=== PATIENT | female | born 1945 | race Caucasian/White ===

== ENCOUNTER → 2016-12-21 | Outpatient (CLI) | payer MEDICARE, BC ==
[~2016-12-21] MED LIST: ACET500T37 PO; AMLO10TA2 PO; ATEN50TA2 PO; ATOR1TAB21 PO; CALC1CAP31 PO; CITA20TA4 PO; CLONI1TA PO; DOXA1TAB42 PO; FURO40TA2 PO; ISOS30TA4 PO; LOSA50TA20 PO; METO5TA PO; RENV2TAB PO; SPIR25TA2 PO
--- NOTE | 2016-12-21 11:06 | REP ---
Chest two views HISTORY: COPD Comparison: 12/20/2014 A minimal increase in interstitial markings is present in the lungs. The heart is normal in size. The pulmonary vasculature is normal in appearance. The bony structure is intact. A catheter is present in the superior vena cava. IMPRESSION: COPD Signed by Lg Shay MD 12/21/2016 10:58 A
== END ==
LOC: M SMT 09:49
PROVIDERS: ATTEND Internal Medicine Pulmonary Disease
DX: J44.9 Chronic obstructive pulmonary disease, unspecified (principal)

== ENCOUNTER 2017-01-31 10:52 | Inpatient (IN) | payer MEDICARE, BC ==
[~2017-01-31] VITALS: Ht 157.5 cm; Wt 97.5 kg
[~2017-01-31 10:52] MED LIST changes: +ACET-683 PO; -ACET500T37 PO
[2017-01-31] MEDS ORDERED: ANOR1AER INH (11:25)
[2017-01-31] MEDS ORDERED: VITA-122 PO (11:25)
[2017-01-31] MEDS ORDERED: MORPHINE 2 MG/ML 1ML SYRINGE IV ONE (13:45)
[2017-01-31] MEDS ORDERED: ACETAMINOPHEN TAB 650MG DOSE (2X325MG) PO ONE (13:45)
[2017-01-31 14:40] LABS: BASO # 0.1 K/mm3 (0.0-0.2); BASO % 0.6 % (0.0-1.0); EOS # 0.3 K/mm3 (0.0-0.50); EOS % 2.5 % (0.0-3.0); LARGE UNSTAINED CELL # 0.2 K/mm3 (0.0-0.4); LARGE UNSTAINED CELL % 1.7 % (0.0-4.0); LYMPH # 1.6 K/mm3 (1.5-4.5); LYMPH % 13.2 % (24.0-44.0); MEAN CORPUSCULAR HEMOGLOBIN 34.9 pg (27.0-33.0); MEAN CORPUSCULAR HGB CONC 32.8 g/dl (32.0-36.5); MEAN CORPUSCULAR VOLUME 106.2 fl (80.0-96.0); MONO # 0.6 K/mm3 (0.0-0.8); MONO % 5.3 % (0.0-5.0); NEUTROPHILS # 8.1 K/mm3 (1.8-7.7); NEUTROPHILS % 76.6 % (36.0-66.0); PLATELET COUNT, AUTOMATED 174 k/mm3 (150-450); RED CELL DISTRIBUTION WIDTH 14.5 % (11.5-14.5); WHITE BLOOD COUNT 10.6 K/mm3 (4.0-10.0)
[2017-01-31 14:53] LABS: CALCIUM LEVEL 8.7 MG/DL (8.8-10.2); CREATININE FOR GFR 6.31 MG/DL (0.55-1.02); GLOMERULAR FILTRATION RATE 6.9 (>39)
[2017-01-31 14:57] LABS: POTASSIUM SERUM 5.5 MEQ/L (3.5-5.1)
[2017-01-31] MEDS ORDERED: ISOVUE-370 76% 100ML VIAL (Q9967) As Ordered ONE (15:02)
--- NOTE | 2017-01-31 15:58 | REP ---
CT CHEST WITH IV CONTRAST: TECHNIQUE: Axial contrast enhanced images from the thoracic inlet to the upper abdomen using 100 mL Isovue 370 intravenous contrast material with multiplanar reformations. In the left upper lobe there is a nodule measuring 7 mm in diameter. Another nodule is seen in the left lower lobe 6 mm in diameter. There is fibrocalcific scarring in the right upper lobe. There are calcified lymph nodes in the right hilum. No suspicious adenopathy is seen. There is no pleural or pericardial effusion. Heart is normal in size. There are mild scattered atherosclerotic calcifications of the thoracic aorta without aneurysm or dissection. There are degenerative changes of the spine. Patient has had a prior cholecystectomy. Left adrenal gland demonstrate diffuse thickening with relatively low density probably representing diffuse adenomatous change. No other significant abnormalities are seen. IMPRESSION: Two left lung nodules noted 6 and 7 mm in diameter. Fibrocalcific scarring right upper lobe with small calcified lymph nodes in the right hilum. No suspicious adenopathy or fluid collection. Diffuse low density thickening of the left adrenal gland probably represents diffuse adenomatous change. Signed by Alex Tay MD 01/31/2017 05:14 P
--- NOTE | 2017-01-31 16:11 | REP ---
CT NECK WITH CONTRAST: HISTORY: Right neck pain. CONTRAST: Isovue-370 100 mL. An ill-defined soft-tissue mass is present in the right supraclavicular area. The mass measures approximately 3.4 cm in transverse x 3.0 cm in AP x 5.3 cm in cephalocaudal dimensions. A catheter is present in the superior vena cava. The catheter enters the superior vena cava at the level of the inferior the left internal jugular vein. The soft tissue mass partially encases the catheter in the anterior subcutaneous soft-tissue. There is encasement of the distal left internal jugular vein. There is inferior extension of the mass to the superior margin of the right clavicle. There is superior extension of the mass posterolateral to the right sternocleidomastoid muscle and lateral the right common carotid and internal carotid arteries and right internal jugular vein. Stranding is present in the overlying subcutaneous tissue and right supraclavicular area and right posterior triangle. Edema and a small amount of fluid are present in the right carotid space and retropharyngeal space. There is very minimal mass effect on the hypopharynx. The naso- and oropharynx, larynx, and subglottic trachea are normal in appearance. The salivary and thyroid glands are normal in appearance. Small lymph nodes less than 1 cm in size are present in the internal jugular chains, posterior triangles and submandibular areas. Degenerative changes is present in the cervical spine. Minimal mucosal thickening is present in the left maxillary sinus. IMPRESSION: There is an ill-defined mass in the right supraclavicular area as described above, most consistent with a phlegmon. The phlegmon encases the right superior vena cava catheter in the right anterior subcutaneous tissues superior to the right clavicle. There is minimal mass effect on the hypopharynx. Signed by Lg Shay MD 01/31/2017 04:30 P
[2017-01-31] MEDS ORDERED: PIPERACILLIN/TAZOBACTAM SOD 3.375 GM in D5W MINI-BAG PLUS 50 ML IV ONE (16:45)
[2017-01-31] MEDS ORDERED: VANCOMYCIN HCL 1,000 MG, VIAL MATE ADAPTER 1 EACH in D5W 250 ML IV ONE (16:45)
[2017-01-31] MEDS ORDERED: MORPHINE 2 MG/ML 1ML SYRINGE IV PRN (18:15)
[2017-01-31] MEDS ORDERED: ONDANSETRON 4MG/2ML VIAL (J2405) IV PRN (18:15)
[2017-01-31] MEDS ORDERED: VANCOMYCIN HCL 1,000 MG, VIAL MATE ADAPTER 1 EACH in D5W 250 ML IV SCH (18:15)
[2017-01-31] MEDS ORDERED: BISACODYL 5 MG TAB PO PRN (18:15)
[2017-01-31] MEDS ORDERED: ACETAMINOPHEN TAB 650MG DOSE (2X325MG) PO PRN (18:15)
[2017-01-31] MEDS ORDERED: GLUCAGON FOR INJ 1 MG VIAL (J1610) SC PRN (18:45)
[2017-01-31] MEDS ORDERED: GLUCOSE 4 GM CHEW TABLET PO PRN (18:45)
[2017-01-31] MEDS ORDERED: IPRATROPIUM 0.5MG/ALBUTEROL 2.5MG INH SOL UD 3ML (DUONEB)(J7620) NEB PRN (18:45)
[2017-01-31] MEDS ORDERED: DEXTROSE 50% 50 ML SYRINGE IV PRN (18:45)
[2017-01-31] MEDS: SOD POLYSTYRENE SULFONATE SUSP 15 GM/60 ML UD PO ONE (19:00)
[2017-01-31] MEDS ORDERED: LOSA100T36 PO (19:04)
[2017-01-31] MEDS ORDERED: RENV2TAB PO (19:09)
[2017-01-31] MEDS ORDERED: CITA20TA4 PO (19:09)
[2017-01-31] MEDS ORDERED: CLON-412 PO (19:09)
[2017-01-31] MEDS: PERCOCET 5MG/325MG TAB PO PRN ×4 (19:31→23:19)
[2017-01-31] MEDS: IPRATROPIUM 0.5MG/ALBUTEROL 2.5MG INH SOL UD 3ML (DUONEB)(J7620) NEB SCH (20:08)
[2017-01-31] MEDS: HumaLOG INSULIN (NovoLOG) PER UNIT SC SCH (21:00)
[2017-01-31] MEDS ORDERED: VANCOMYCIN INTERMITTENT/PULSE DOSING BY CLINICAL PHARMACIST PER DOSING PROTOCOL XX SCH (22:00)
--- NOTE | 2017-01-31 23:46 | HPE ---
DATE OF ADMISSION: 01/31/2017 PRIMARY CARE PROVIDER: Patient does not remember the name of the primary care provider. ADULT PROBATION OFFICER: Patient does not remember the name of the casualty underwriter. CHIEF COMPLAINT: Right-sided neck pain close to the Shiley catheter. HISTORY OF PRESENT ILLNESS: Ms. El is a 71-year-old female with multiple past medical history who presented to the emergency room (ER) due to experiencing right-sided neck pain as well as pain and tenderness around the Shiley catheter which had started since last night. Patient expressed that around 11 p.m. patient started noticing severe pain in the right side of the neck and around the Shiley catheter. Patient expressed that she tried to sleep, however she could not due to the pain. Pain was increased with rotation of the neck, as well as palpating the area. Patient expressed the pain was a sharp, achy pain, with no radiation. Patient was accompanied by her daughter who expressed that patient has some swelling in the side of the Shiley catheter. Patient cannot remember if she had any fever, however patient expressed that she had some chills and night sweats. Patient's daughter also noticed some erythema around the site of the Shiley catheter. Patient denies problem with chewing food or pain with movement of the right upper extremity. Patient denies headache, lightheadedness, or dizziness. Patient was brought to emergency room (ER) by her daughter and her daughter's boyfriend. Patient also receives dialysis. Patient receives dialysis on Tuesdays, , and Saturdays, her last dialysis was on Tuesday. ALLERGIES: No known allergies. HOME MEDICATIONS: - acetaminophen extra strength 500 mg by mouth every 6 hours as needed for pain - amlodipine besylate 10 mg by mouth daily - Anoro Ellipta one puff inhaled daily - atenolol 50 mg by mouth daily - atorvastatin 20 mg by mouth daily - calcitriol 0.25 mg by mouth daily - vitamin D3 1000 units by mouth daily - citalopram 20 mg by mouth daily - clonidine 0.1 mg by mouth twice a day - isosorbide mononitrate 30 mg by mouth twice a day - losartan potassium 100 mg by mouth daily - Renvela 800 mg by mouth Mondays and Wednesdays FAMILY HISTORY: Patient has five children, three daughters and two sons, who are healthy. Patient has one brother who is still alive, however patient has three sisters who due to cancer. Patient's mother in her 40s when she was having open heart surgery. Patient's father due to lung cancer. SOCIAL HISTORY: Patient denies using alcohol. Patient smoked about a pack a day since age 12. Patient denies illicit drug use. Patient has a dog. Patient lives with her boyfriend and her daughter and her daughter's . Patient has not traveled outside of the [place]. REVIEW OF SYSTEMS: GENERAL: Patient denies fever, chills, night sweats, weight loss or weight gain. HEENT: Patient denies acute vision or hearing changes. Patient denies problem with chewing food or sinusitis. NECK: Patient expressed that she has been experiencing, on the right side, 10/10, sharp, severe pain. Patient also has a Shiley catheter on the right side of her sternum. Patient expressed that the pain is increased by palpation. However, the patient denies lumps or bumps. Patient also expressed that her neck range of motion has decreased to the right compared to the left side. LUNGS: Patient denies shortness of breath or coughing. HEART: Patient denies palpitations, racing or skipping heart beat, or chest pain. ABDOMEN: Patient denies abdominal pain, nausea, vomiting, diarrhea, constipation, melena, hematochezia, or hemoptysis. NEUROLOGIC: Patient denies history of transient ischemic attack (TIA), seizure, or seizure-type activities. PHYSICAL EXAMINATION: VITAL SIGNS: Temperature of 100.2, pulse 55, respiratory rate 18, blood pressure 138/66, pulse oximetry 98% on room air. GENERAL APPEARANCE: Patient was lying in bed, in no acute distress. Patient was awake, alert, and oriented to time, place, and person. HEENT: Normocephalic, atraumatic. Pupils are equal and reactive to light. Oral mucosa was moist. NECK: Soft, supple. Patient had tenderness to palpation on the right side of the neck, especially around the area of the Shiley catheter. Patient also has some pus from the site of the Shiley catheter insertion, however no erythema or swelling was noticed in that area. LUNGS: Patient has scattered rhonchi at the base of the lung and good air movement. HEART: Patient has regular rate and rhythm, normal S1, S2. ABDOMEN: Soft, nontender. Positive bowel sounds in all quadrants. EXTREMITIES: No lower extremity edema, +2 pulses in both lower extremities. NEUROLOGIC: Cranial nerves II-XII were intact, no focal deficiencies. LABORATORY DATA: White blood cells 10.6, red blood cells 3.07, hemoglobin 10.7, hematocrit 32.7, MCV 106.2, MCH 34.9, MCHC 32.8, RDW 14.5, platelet count 174, neutrophil percentage 76.6, lymphocyte percentage 13.2, monocyte percentage 5.3, eosinophil percentage 2.5, basophil percentage 0.6, leukocyte percentage 1.7. Sodium 135, potassium 5.5, chloride 103, carbon dioxide 19, anion gap 13, BUN 42, creatinine 6.31, glomerular filtration rate 6.9, fasting glucose 88, calcium 8.7. Blood culture is pending. IMAGING: Chest CT which shows two left lung nodules noted 6 and 7 mm in diameter. Fibrocalcific scarring right upper lobe with small calcified lymph nodes in the right hilum. No suspicious adenopathy or fluid collection. Diffuse low density thickening of the left adrenal gland probably represents diffuse adenomatous changes. CT of the neck with contrast which shows ill-defined mass in the right supraclavicular area most consistent with a phlegmon. The phlegmon encases the right superior vena cava catheter in the right anterior subcutaneous tissues superior to the right clavicle. There is minimal mass effect on the hypopharynx. ASSESSMENT AND PLAN: 1. Neck pain. This is possibly secondary to infected Shiley catheter. Blood culture is pending. At this time we have started patient on vancomycin and Zosyn. Also patient may require vascular surgeon consult for tomorrow for removal of catheter. Also we have made the patient nothing by mouth and started patient on gentle IV fluid due to possibility of the procedure for tomorrow. 2. Acute on chronic renal failure. Patient receives dialysis and tomorrow is her dialysis day. I have spoken with Dr. Sommer regarding patient's dialysis. 3. Accelerated hypertension. At this point, we will continue patient on Norvasc, atenolol, Cozaar, as well as Imdur. At this point, patient is stable. 4. Hyperkalemia. This is secondary to chronic kidney disease. EKG has been ordered. Also I have ordered one dose of Kayexalate. We will continue monitoring patient's potassium level. 5. History of hypertension. We will continue patient on the current medications. At this time patient's blood pressure is stable. 6. Diabetes. We will continue patient on sliding scale. At this time, patient is stable. However, at this time patient is nothing by mouth. We will continue patient on every 6 hours fingersticks. 7. Chronic obstructive pulmonary disease (COPD). At home, patient was on Anoro , however we have started patient on DuoNeb and patient is stable. Also patient is on oxygen with a goal of 88-92%. 8. Hyperlipidemia. We will continue patient on statin. 9. Congestive heart failure. Patient is following with casualty underwriter, however we do not have the new echo. Will continue patient on furosemide, atenolol, and spironolactone. 10. Deep venous thrombosis ( DVT) prophylaxis. Due to the possibility of a procedure, we will continue patient on thromboembolism deterrents (TEDs) and sequentials. 11. Lung nodules. Based on the new CT of the chest which was done today, it indicted patient has two left lung nodules noted, 6 and 7 mm in diameter, which require followup. My preceptor for this patient encounter was Dr. Lela Simon. The preceptor was physically present in the building during the encounter and was fully available. As needed, all aspects of the patient interview, examination, medical decision making process, and medical care plan development were reviewed and approved by the preceptor. The preceptor is aware and concurs with the plan as stated in the body of this note and will attest to such by her cosignature. I have seen and examined the above patient and agree with the plan as documented above. SUSAN
[2017-02-01] VITALS: BP 151/80
[2017-02-01] MEDS: cloNIDine 0.1 MG TAB PO SCH ×3 (00:21→22:09)
[2017-02-01] MEDS: ISOSORBIDE MON. (IMDUR) 30 MG XR TAB PO SCH ×3 (00:21→22:10)
[2017-02-01] MEDS: NS 1,000 ML IV SCH ×2 (00:21→14:45)
[2017-02-01] MEDS: IPRATROPIUM 0.5MG/ALBUTEROL 2.5MG INH SOL UD 3ML (DUONEB)(J7620) NEB SCH ×4 (02:00→20:19)
[2017-02-01] MEDS: PIPERACILLIN/TAZOBACTAM SOD 3.375 GM in D5W MINI-BAG PLUS 50 ML IV SCH ×3 (04:40→22:11)
[2017-02-01 06:00] VITALS: BP 174/80
[2017-02-01] MEDS: (RENVELA) SEVELAMER **CARBONate** 800 MG TAB PO SCH ×4 (06:44→18:22)
[2017-02-01 06:48] LABS: BASO % 0.5 % (0.0-1.0); EOS # 0.1 K/mm3 (0.0-0.50); EOS % 1.3 % (0.0-3.0); LARGE UNSTAINED CELL # 0.2 K/mm3 (0.0-0.4); LARGE UNSTAINED CELL % 1.7 % (0.0-4.0); LYMPH # 1.4 K/mm3 (1.5-4.5); LYMPH % 11.5 % (24.0-44.0); MEAN CORPUSCULAR HEMOGLOBIN 35.5 pg (27.0-33.0); MEAN CORPUSCULAR HGB CONC 33.9 g/dl (32.0-36.5); MEAN CORPUSCULAR VOLUME 104.8 fl (80.0-96.0); MONO # 0.7 K/mm3 (0.0-0.8); MONO % 6.9 % (0.0-5.0); NEUTROPHILS % 78.2 % (36.0-66.0); PLATELET COUNT, AUTOMATED 195 k/mm3 (150-450); RED CELL DISTRIBUTION WIDTH 14.6 % (11.5-14.5); WHITE BLOOD COUNT 10.2 K/mm3 (4.0-10.0)
[2017-02-01 07:18] LABS: ALBUMIN 2.9 GM/DL (3.2-5.2); BILIRUBIN,TOTAL 0.5 MG/DL (0.2-1.0); CALCIUM LEVEL 8.5 MG/DL (8.8-10.2); CREATININE FOR GFR 7.24 MG/DL (0.55-1.02); GLOMERULAR FILTRATION RATE 5.9 (>39); TOTAL PROTEIN 5.8 GM/DL (6.4-8.2); VANCOMYCIN RANDOM 8.5 UG/ML
[2017-02-01] MEDS: HumaLOG INSULIN (NovoLOG) PER UNIT SC SCH ×4 (07:30→21:00)
[2017-02-01 07:45] LABS: POTASSIUM SERUM 5.8 MEQ/L (3.5-5.1)
[2017-02-01] MEDS: CALCITRIOL 0.25 MCG CAP (S0169) PO SCH (08:24)
[2017-02-01] MEDS: ATENOLOL 50 MG TAB PO SCH (08:25)
[2017-02-01] MEDS: CitaloPRAM (CeleXA) 20 MG TAB PO SCH (08:26)
[2017-02-01] MEDS: LOSARTAN 50 MG TAB PO SCH (08:26)
[2017-02-01] MEDS: amLODIPine 10 MG TAB PO SCH (08:26)
[2017-02-01] MEDS: VITAMIN D 1,000 INTERNATIONAL UNITS TABLET PO SCH (08:26)
[2017-02-01] MEDS: ATORVASTATIN 20 MG TAB PO SCH (08:26)
--- NOTE | 2017-02-01 09:10 | ED PDOC ---
Post-Departure Follow-Up radiology report faxed to Yue Schilling MD Feb 01, 2017 09:09
[2017-02-01] MEDS ORDERED: HEPARIN 1,000 UNITS/ML 10ML VIAL (FOR RADIOLOGY& DIALYSIS ONLY) IV ONE (11:30)
[2017-02-01] MEDS ORDERED: HEPARIN 1,000 UNITS/ML 10ML VIAL (FOR RADIOLOGY& DIALYSIS ONLY) XX ONE (11:30)
--- NOTE | 2017-02-01 12:19 | PHACANCOPD ---
PHARMACY VANCOMYCIN DOSING Pt Demographics Demographics Patient Age:71 , Weight:96.700 , Gender: female Adjusted Body Weight Date: 02/01/17, Adjusted Body Weight: Kg Events Past 24 Hours Events Past 24 Hours: YES: Dialysis, Elevation in WBC, NO: Diuretic Therapy, Change in CrCl, Fever, Pending Diagnostics, Pending Procedures, Other Vancomycin Vancomycin Target Ranges: 15-20 mcg/ml Vancomycin Load Y/N: No Load Dose Date Time Vancomycin Load Dose: Date: Time: Vancomycin Dose Date: 02/01/17. Current Vancomycin Dose: [1G HD] Intermittent Dosing?: No Labs Labs Item Value Date Time White Blood Count 10.6 K/mm3 H 01/31/17 1423 White Blood Count 10.2 K/mm3 H 02/01/17 0620 Creatinine 6.31 MG/DL H 01/31/17 1423 Creatinine 7.24 MG/DL H 02/01/17 0620 Random Vancomycin Level 8.5 UG/ML 02/01/17 0620 Micro Microbiology 01/31/17 Blood Culture, Received Pending 01/31/17 Blood Culture, Received Pending Creatinine Clearance Date:02/01/17. Creatinine Clearance: [7.24]. Assessment and Plan Maintaining Current Dose?: Yes Reason for dose change: Other (pt is HD. changed to dose after HD) Pharmacist Note Pharmacist Note Date: 02/01/17. Pharmacist note: Pt. is a 71 year old female who presented to the ER on 01/31 with right-sided neck pain and tenderness around her shiley catheter. Pt is currently received HD on , , and Tue. She received Vanco IV 1G in ED at 5pm. on 01/31. On 02/01 pt received dialysis. Will start dosing with 1500mg LD after dialysis today, then continue Vanco 1G HD. We will continue to monitor and make dose adjustments as needed. MALI[facility] Feb 01, 2017 12:19
--- NOTE | 2017-02-01 12:59 | CR ---
DATE OF CONSULTATION: 02/01/2017 REQUESTING PHYSICIAN: Dr. Norma Yates CONSULTING PHYSICIAN: Ronn Sommer MD REASON FOR CONSULTATION: Management of end-stage renal disease, hemodialysis, and hyperkalemia. CHIEF COMPLAINT: The patient presented to the emergency room yesterday because of severe right-sided neck pain close to the catheter site. HISTORY OF PRESENT ILLNESS: Rachael El is a 71-year-old female with past medical history of end-stage renal disease, on hemodialysis every Tuesday, , Tuesday, well known to nephrology service from the outpatient dialysis center. The patient has a tunneled right internal jugular (vein) (IJ) hemodialysis catheter. The patient started having severe pain at the right side of the neck at the catheter site, along with swelling and inability to move the neck. The patient presented to the emergency room yesterday. She got a CAT scan of the neck done with contrast, which showed inflammation around the catheter site. The patient was started on intravenous (IV) antibiotics, and nephrology service was called for further help in the management of end-stage renal disease , on hemodialysis. Of note, the patient was also found to be hyperkalemic with a potassium level of 5.5 on admission, which is 5.8 today morning. The patient was seen and examined by me today morning during hemodialysis procedure, as well. PAST MEDICAL HISTORY: Past medical history of end-stage renal disease, on hemodialysis, hypertension, diabetes mellitus type 2, obesity, chronic obstructive pulmonary disease (COPD), hyperlipidemia, history of congestive heart failure, depression, obstructive sleep apnea, anemia in end-stage renal disease, and history of coronary artery disease. PAST SURGICAL HISTORY: Status post appendectomy, history of cholecystectomy in the past, history of coronary artery stenting in the past, and status post right IJ tunneled hemodialysis catheter. ALLERGIES: No known drug allergies. HOME MEDICATIONS: The patient's home medications include: - Tylenol as needed for fever - amlodipine 10 mg by mouth daily - Anoro Ellipta one puff daily - atenolol 50 mg daily - atorvastatin 20 mg daily - calcitriol 0.25 mcg by mouth daily - vitamin D3 1000 units by mouth daily - citalopram 20 mg by mouth daily - clonidine 0.1 mg by mouth twice a day - isosorbide 30 mg by mouth twice a day - losartan 100 mg by mouth daily - Renvela 800 mg by mouth three times a day with meals FAMILY HISTORY: No significant family history of end-stage renal disease requiring hemodialysis. There is a positive history of lung cancer in the father. SOCIAL HISTORY: The patient is an active smoker. She smokes about a pack a day. She denies any alcohol abuse. She denies any illicit drug use. REVIEW OF SYSTEMS: GENERAL: The patient denies any fevers, chills, rigors, or weakness. EYES: She denies any double vision or blurry vision. EARS, NOSE, AND THROAT (ENT): She denies any dysphagia, odynophagia, or ear discharge. NECK: The patient does report right-sided neck swelling, pain, and tenderness. CARDIOVASCULAR: She denies any palpitations or chest pain or lower extremity edema. RESPIRATORY: The patient denies any cough or shortness of breath. GASTROINTESTINAL (GI): She denies any pain abdomen, constipation, diarrhea, or nausea. GENITOURINARY: She denies any history of dysuria or hematuria. CENTRAL NERVOUS SYSTEM (ASSIGNMENT CLERK): She denies history of strokes, seizures, or any muscle weakness. HEMATOLOGICAL AND ONCOLOGICAL: History of anemia secondary to end-stage renal disease. SKIN: She denies any rashes or ulcers. PSYCHIATRIC: The patient reports history of depression. ENDOCRINE: The patient reports history of diabetes and secondary hyperparathyroidism. All other review of systems is negative. LABORATORY REVIEW: CBC showed a WBC 10.2, hemoglobin 10.1, platelets are 195. BMP showed sodium 135, potassium 5.8, chloride 102, bicarbonate 25, BUN 54, creatinine is 7.2, calcium is 8.5, albumin 2.9. MICROBIOLOGY: Blood cultures are pending. IMAGING: A CAT scan of the neck was done yesterday, which showed ill-defined mass in the right supraclavicular area consistent with a phlegmon at the right superior vena cava catheter site. CURRENT INPATIENT MEDICATIONS: The patient's current inpatient medications include: - NS @50 mL an hour - Zosyn 3.25 gram intravenous (IV) every 8 hours - vancomycin 1 gram IV - Tylenol as needed - DuoNeb as needed - amlodipine 10 mg daily - atenolol 50 mg daily - Lipitor 20 mg daily - calcitriol 0.25 mcg daily - Celexa 20 mg daily - clonidine 0.1 mg by mouth twice a day - heparin subcutaneous - insulin sliding scale - isosorbide 30 mg by mouth twice a day - losartan 100 mg by mouth daily - morphine 2 mg IV one dose - Zofran IV as needed - Percocet one tablet by mouth every 4 hours as needed moderate pain - Renvela 800 mg by mouth with meals - Kayexalate 15 gram by mouth times one dose was given yesterday - vitamin D 1000 units by mouth daily PHYSICAL EXAMINATION: GENERAL: The patient is awake, alert, oriented times three, laying in bed, getting hemodialysis done. No apparent distress. VITAL SIGNS: Temperature is 98.7 degrees Fahrenheit, blood pressure is 174/80, pulse is 63, respiratory rate of 18, saturating 90% on room air. HEAD AND NECK EXAMINATION: Extraocular muscles intact. Pupils equally round and reactive to light. Mucous membranes are moist. Neck is supple. There is no jugular venous distention (JVD). The patient has a right-sided tunneled hemodialysis catheter with a tenderness and swelling at the right-sided catheter site. CARDIOVASCULAR: S1, S2. Regular rate. No murmur, rub, and gallop. RESPIRATORY: Chest is clear to auscultation bilaterally. Bilateral equal air entry. No rales or rhonchi. ABDOMEN: Is soft. Positive bowel sounds. Nontender. No ascites. No organomegaly. EXTREMITIES: No clubbing or cyanosis. Pulses are 2+. SKIN: No rashes or ulcers. CENTRAL NERVOUS SYSTEM (ASSIGNMENT CLERK): No focal neurological deficits. Power is 5/5 in all extremities. PSYCHIATRIC: Normal mood and affect. ASSESSMENT: A 71-year-old female with a past medical history of end-stage renal disease, on hemodialysis, hypertension, chronic obstructive pulmonary disease (COPD), admitted this time because of pain and swelling at the right IJ tunneled hemodialysis catheter site, along with hyperkalemia. PLAN: 1. Pain and swelling at the right internal jugular tunneled hemodialysis catheter site. The patient is being dialyzed via the right IJ catheter right now. After we dialyze this patient, the patient will be taken by vascular surgery for removal of catheter, and another catheter would possibly be placed in 1-2 days. Continue the antibiotics and follow the cultures. 2. End-stage renal disease, on hemodialysis. The patient's regular dialysis days are Tuesday, , Saturday. She is being dialyzed at this time according to her regular schedule. 3. Hyperkalemia. Potassium is 5.8 today. The patient will be dialyzed against a 1K bath. Potassium is expected to improve after hemodialysis. 4. Hyponatremia. Sodium level is low because of hypervolemia and end-stage renal disease. Sodium is expected to improve with ultrafiltration. 5. Hypertension. Blood pressure is expected to improve with hemodialysis and ultrafiltration. Continue home dose of amlodipine 10 mg by mouth daily, atenolol 50 mg by mouth daily, clonidine 0.1 mg by mouth twice a day, isosorbide 30 mg by mouth twice a day, and Losartan 100 mg by mouth daily. 6. Secondary hyperparathyroidism of renal origin. Continue home dose of calcitriol 0.25 mcg by mouth daily. 7. Chronic obstructive pulmonary disease. Continue home dose of Anoro Ellipta and DuoNebs as needed. 8. Diabetes mellitus type 2. Insulin sliding scale as per primary team. Thank you for involving us in the care of this patient. We shall be happy to follow the patient along with you tomorrow morning. PAULINED
[2017-02-01 14:00] VITALS: BP 133/98
[2017-02-01] MEDS: CHECK TO SEE IF PATIENT IS RECEIVING DIALYSIS TODAY AND REFER TO THE VANCOMYCIN ORDER XX SCH (16:00)
--- NOTE | 2017-02-01 16:51 | IPN ---
DATE: 02/01/2017 Patient seen and examined at the dialysis center at bedside. She is sleeping. Patient complains of feeling cold last night. The maximum temperature (T max) was 100.2. Dialysis catheter will be removed today after dialysis by vascular surgeon, Dr. Mcintosh. No other issues per nursing aside from potassium of 5.8. Patient denies any headaches, changes in vision, chest pain, pressure, tightness, shortness of breath, palpitations, lightheadedness, nausea, vomiting, epigastric pain, diarrhea, constipation, dysuria, urgency, frequency, chills or flank pain. Vital Signs: Temperature 98.7, maximum temperature (T max) 100.2, pulse 63, respiratory rate 18, blood pressure 174/80, 90% on room air. Generally, awake, alert, oriented times three, arousable, answers questions appropriately. No respiratory distress or use of respiratory accessory muscles. Lying in bed in no distress. Awakens spontaneously. HEENT: Pupils are round and reactive to light and accommodation. Extraocular muscles are intact. Normocephalic, atraumatic. Neck is supple, tender on the right side of the neck around the Shiley catheter. Mild purulence. No erythema or swelling. Lungs: Rhonchorous bilaterally. Decreased air entry. Heart: S1, S2, sinus rhythm. No murmurs, rubs or gallops. Abdomen: Soft, nontender, nondistended, obese abdomen. Positive bowel sounds in four quadrants. No rebound, guarding or hepatosplenomegaly. Extremities: No lower extremity edema, cyanosis or clubbing, 2+ pulses bilateral lower extremities. LABORATORY DATA: White count 10.2, hemoglobin 10, hematocrit 29, platelet count 195. Sodium 135, potassium 5.8, chloride 102, bicarbonate 25, BUN 54, creatinine 7.24, glucose of 106. Microbiology: Two sets of blood cultures are pending. IMAGING STUDIES: Chest CT: Two left lung nodules noted 6 and 7 mm in diameter, right upper lobe. Fibrocalcific scarring. No adenopathy. Diffuse thickening represents diffuse adenomatous change. Neck CT 01/31/2017: Ill-defined mass in the right supraclavicular area consistent with phlegmon, encasing the right superior vena cava catheter right anterior subcutaneous tissue superior to the right clavicle, minimal mass effect in the hypopharynx. ASSESSMENT AND PLAN: This is a 71-year-old female with a history of hypertension, diabetes, obesity, chronic obstructive pulmonary disease (COPD), hyperlipidemia, congestive heart failure (CHF), stage IV chronic kidney disease, depression, obstructive sleep apnea (DAGMAR), anemia, vitamin D deficiency, coronary artery disease, angioplasty, stent in 2011, presents to the emergency room with complaints of pain in the right neck at the dialysis catheter area, unable to sleep with some erythema. The patient is admitted for infected Shiley catheter line infection. CURRENT ISSUES: 1. Infection at the Shiley catheter site, currently on intravenous (IV) antibiotics with vancomycin intravenously and Zosyn, renal dosing. Vascular surgeon, Dr. Mcintosh, has been consulted to discontinue the dialysis catheter and to consider other modalities of vascular access for hemodialysis needs. Dr. Sommer has been made aware of the vascular surgery consult. Continue with intravenous (IV) antibiotics. Await blood culture results. 2. End-stage renal disease, on hemodialysis secondary to diabetes, hypertensive. Currently on maintenance hemodialysis, managed by Dr. Sommer. 3. Hyperkalemia. Dr. Sommer managing via hemodialysis. 4. Hypertension. Continue on home medications. Currently on Norvasc, atenolol, losartan, clonidine, isosorbide. 5. Type 2 diabetes. Appears to be controlled. 6. Hyperlipidemia, on chronic Lipitor. 7. Hyperparathyroidism secondary to renal failure, on calcitriol and vitamin D. 8. Depression, on Celexa. 9. Diet. Renal diet. 10. Deep vein thrombosis (DVT) prophylaxis has been held due to plan for vascular surgery removal of the catheter.
[2017-02-01] MEDS ORDERED: VANCOMYCIN HCL 500 MG in D5W MINI-BAG PLUS 100 ML IV ONE (17:00)
[2017-02-01] MEDS: VANCOMYCIN HCL 1,000 MG, VIAL MATE ADAPTER 1 EACH in D5W 250 ML IV SCH (17:10)
[2017-02-01 22:00] VITALS: BP 148/66
[2017-02-02] MEDS: IPRATROPIUM 0.5MG/ALBUTEROL 2.5MG INH SOL UD 3ML (DUONEB)(J7620) NEB SCH ×4 (01:47→20:20)
[2017-02-02 06:00] VITALS: BP 147/60
[2017-02-02] MEDS: PIPERACILLIN/TAZOBACTAM SOD 3.375 GM in D5W MINI-BAG PLUS 50 ML IV SCH (06:24)
[2017-02-02 07:07] LABS: BASO % 0.4 % (0.0-1.0); EOS # 0.2 K/mm3 (0.0-0.50); EOS % 2.2 % (0.0-3.0); LARGE UNSTAINED CELL # 0.2 K/mm3 (0.0-0.4); LARGE UNSTAINED CELL % 1.7 % (0.0-4.0); LYMPH # 1.2 K/mm3 (1.5-4.5); LYMPH % 12.6 % (24.0-44.0); MEAN CORPUSCULAR HEMOGLOBIN 34.7 pg (27.0-33.0); MEAN CORPUSCULAR HGB CONC 33.6 g/dl (32.0-36.5); MEAN CORPUSCULAR VOLUME 103.3 fl (80.0-96.0); MONO # 0.6 K/mm3 (0.0-0.8); NEUTROPHILS # 7.4 K/mm3 (1.8-7.7); NEUTROPHILS % 77.1 % (36.0-66.0); PLATELET COUNT, AUTOMATED 228 k/mm3 (150-450); WHITE BLOOD COUNT 9.6 K/mm3 (4.0-10.0)
[2017-02-02 07:18] LABS: ALBUMIN 2.7 GM/DL (3.2-5.2); ALBUMIN/GLOBULIN RATIO 0.77 (1.00-1.93); BILIRUBIN,TOTAL 0.7 MG/DL (0.2-1.0); CALCIUM LEVEL 8.4 MG/DL (8.8-10.2); CREATININE FOR GFR 4.69 MG/DL (0.55-1.02); GLOMERULAR FILTRATION RATE 9.8 (>39); MAGNESIUM LEVEL 1.9 MG/DL (1.8-2.4); POTASSIUM SERUM 3.6 MEQ/L (3.5-5.1); TOTAL PROTEIN 6.2 GM/DL (6.4-8.2)
[2017-02-02] MEDS: HumaLOG INSULIN (NovoLOG) PER UNIT SC SCH ×4 (07:21→21:00)
[2017-02-02] MEDS: ATORVASTATIN 20 MG TAB PO SCH (08:48)
[2017-02-02] MEDS: cloNIDine 0.1 MG TAB PO SCH ×2 (08:48→21:05)
[2017-02-02] MEDS: ISOSORBIDE MON. (IMDUR) 30 MG XR TAB PO SCH ×2 (08:49→21:06)
[2017-02-02] MEDS: CitaloPRAM (CeleXA) 20 MG TAB PO SCH (08:49)
[2017-02-02] MEDS: VITAMIN D 1,000 INTERNATIONAL UNITS TABLET PO SCH (08:49)
[2017-02-02] MEDS: LOSARTAN 50 MG TAB PO SCH (08:49)
[2017-02-02] MEDS: CALCITRIOL 0.25 MCG CAP (S0169) PO SCH (08:49)
[2017-02-02] MEDS: amLODIPine 10 MG TAB PO SCH (08:49)
[2017-02-02] MEDS: (RENVELA) SEVELAMER **CARBONate** 800 MG TAB PO SCH ×3 (08:49→18:07)
[2017-02-02] MEDS: ATENOLOL 50 MG TAB PO SCH (08:49)
[2017-02-02 14:00] VITALS: BP 150/60
[2017-02-02] MEDS: CHECK TO SEE IF PATIENT IS RECEIVING DIALYSIS TODAY AND REFER TO THE VANCOMYCIN ORDER XX SCH (14:12)
[2017-02-02] MEDS: PIPERACILLIN/TAZOBACTAM SOD 2.25 GM in D5W MINI-BAG PLUS 50 ML IV SCH (21:03)
--- NOTE | 2017-02-02 21:22 | IPN ---
DATE: 02/02/2017 SUBJECTIVE: The patient was seen and examined at the bedside today in the morning. She feels much better. Her right internal jugular tunneled hemodialysis catheter was removed after dialysis yesterday. The patient was also dialyzed yesterday and she tolerated the hemodialysis procedure well. The patient reports that she feels significantly better after removal of infected catheter. REVIEW OF SYSTEMS: The patient denies any fevers, chills, rigors, headache, chest pain, shortness of breath. She reports that the right sided neck pain is significantly getting better. She denies any pain in the abdomen, constipation or diarrhea. The rest of the review of systems are negative. OBJECTIVE: VITAL SIGNS: Temperature is 97.6 degrees Fahrenheit. Blood pressure is 147/60. Pulse is 64. Respiratory rate of 18. Saturating 91% on room air. Intake and output: Urine output recorded is around 300 mL today since overnight. Ultrafiltration with hemodialysis was 2.5 liters. Weight on the bed scale is 95.6 kg. PHYSICAL EXAMINATION: GENERAL: The patient is awake, alert, oriented times three. Sitting in bed. No apparent distress. HEAD/NECK EXAM: Extraocular muscles intact. Pupils are equal, round and reactive to light. Mucous membranes are moist. Neck is supple. She does have mild tenderness on the right side of the neck on deep palpation. Right IJ tunneled catheter has been removed and currently she has a dressing at the catheter site. CARDIOVASCULAR: S1, S2. Regular rate. No murmur, rub or gallop. RESPIRATORY: Chest is clear to auscultation bilaterally. Bilateral equal air entry. No rales or rhonchi. ABDOMEN: Soft. Positive bowel sounds. Nontender. No ascites. No organomegaly. EXTREMITIES: No clubbing or cyanosis. Pulses are 2+. SKIN: No rashes or ulcers. NEUROLOGIC: No focal neurological deficit. Power is 5/5 in all extremities. PSYCHIATRIC: Normal mood and affect. LABORATORY REVIEW: Complete blood count (CBC) showed a WBC of 9.6, hemoglobin 9.9, platelets are 228. Basic metabolic panel (BMP) showed a sodium of 130, potassium 3.6, chloride 95, bicarbonate 26, BUN 25, creatinine is 4.6, albumin 2.7. Microbiology: Blood cultures sent on 01/31/2017 are negative so far. Current inpatient medications: The patient's medications were all reviewed by me. She is currently on vancomycin 1 gram IV with hemodialysis and Zosyn 3.375 grams IV every 8 hours. There is no other change in the medications today as compared with yesterday. ASSESSMENT: 71-year-old female with a past medical history of end stage renal disease on hemodialysis, hypertension, chronic obstructive pulmonary disease (COPD), admitted this time because of infected right IJ tunneled hemodialysis catheter. PLAN: 1. Infected right IJ tunneled hemodialysis catheter. The patient's catheter was removed yesterday. She is currently on empiric vancomycin and Zosyn. I have decreased the Zosyn dose to 2.25 grams IV every 12 hours because of renal failure. 2. End stage renal disease on hemodialysis. The patient's regular dialysis days are Tuesday, and Tuesday. She will be dialyzed tomorrow as per her regular schedule once the access is established. 3. Dialysis access. The patient's right IJ tunneled hemodialysis catheter was removed because of infection. Vascular surgery will do the fistulogram of the left upper arm AV fistula tomorrow. If the fistula is okay to use, then she will be dialyzed through the fistula, otherwise she will get another tunneled hemodialysis catheter tomorrow. 4. Hyponatremia. Hyponatremia is secondary to end stage renal disease and fluid overload. The patient will be dialyzed tomorrow after the access is established. No urgent need to do hemodialysis today. 5. Hypertension. Blood pressure is acceptable at this time. Continue current dose of amlodipine 10 mg daily, atenolol 50 mg daily, clonidine 0.1 mg by mouth twice a day and isosorbide 30 mg by mouth twice a day, along with losartan 100 mg daily. 6. Secondary hyperparathyroidism of renal origin. Continue home dose of calcitriol 0.25 mcg daily. 7. Chronic obstructive pulmonary disease (COPD). It is optimized at this time. Continue home dose of Anoro Ellipta. 8. Diabetes mellitus type 2. Blood glucose levels are within acceptable range. Continue insulin sliding scale. The plan of care was discussed with vascular surgery, Dr. Mcintosh.
[2017-02-02 22:00] VITALS: BP 135/72
[2017-02-03] MEDS: IPRATROPIUM 0.5MG/ALBUTEROL 2.5MG INH SOL UD 3ML (DUONEB)(J7620) NEB SCH ×4 (01:54→20:03)
[2017-02-03 06:00] VITALS: BP 144/70
[2017-02-03 07:07] LABS: WHITE BLOOD COUNT 7.8 K/mm3 (4.0-10.0)
[2017-02-03 07:12] LABS: BASO % 0.7 % (0.0-1.0); EOS % 3.9 % (0.0-3.0); LARGE UNSTAINED CELL % 2.3 % (0.0-4.0); MEAN CORPUSCULAR HEMOGLOBIN 34.1 pg (27.0-33.0); MEAN CORPUSCULAR HGB CONC 32.8 g/dl (32.0-36.5); MEAN CORPUSCULAR VOLUME 103.8 fl (80.0-96.0); MONO % 6.4 % (0.0-5.0); NEUTROPHILS % 74.8 % (36.0-66.0); PLATELET COUNT, AUTOMATED 260 k/mm3 (150-450)
[2017-02-03 07:14] LABS: BASO # 0.1 K/mm3 (0.0-0.2); EOS # 0.3 K/mm3 (0.0-0.50); LARGE UNSTAINED CELL # 0.2 K/mm3 (0.0-0.4); LYMPH # 0.9 K/mm3 (1.5-4.5); MONO # 0.5 K/mm3 (0.0-0.8); NEUTROPHILS # 5.8 K/mm3 (1.8-7.7)
[2017-02-03 07:20] LABS: ALBUMIN 2.7 GM/DL (3.2-5.2); ALBUMIN/GLOBULIN RATIO 0.79 (1.00-1.93); BILIRUBIN,TOTAL 0.6 MG/DL (0.2-1.0); CALCIUM LEVEL 8.2 MG/DL (8.8-10.2); CREATININE FOR GFR 5.86 MG/DL (0.55-1.02); GLOMERULAR FILTRATION RATE 7.5 (>39); POTASSIUM SERUM 3.3 MEQ/L (3.5-5.1); TOTAL PROTEIN 6.1 GM/DL (6.4-8.2)
[2017-02-03] MEDS: (RENVELA) SEVELAMER **CARBONate** 800 MG TAB PO SCH ×3 (08:46→17:02)
[2017-02-03] MEDS: PIPERACILLIN/TAZOBACTAM SOD 2.25 GM in D5W MINI-BAG PLUS 50 ML IV SCH ×2 (08:46→20:23)
[2017-02-03] MEDS: HumaLOG INSULIN (NovoLOG) PER UNIT SC SCH ×4 (08:47→20:20)
[2017-02-03] MEDS ORDERED: DARBEPOETIN 100 MCG/0.5 ML *DIALYSIS* SYRINGE (J0882) IV SCH (09:15)
[2017-02-03] MEDS ORDERED: ISOVUE-300 61% 50ML VIAL (Q9967) As Ordered ONE (10:14)
[2017-02-03] MEDS ORDERED: LIDOCAINE 2% MDV 20 ML VIAL As Ordered ONE (10:14)
[2017-02-03] MEDS ORDERED: HEPARIN 1,000 UNITS/ML 10ML VIAL (FOR RADIOLOGY& DIALYSIS ONLY) As Ordered ONE (10:14)
[2017-02-03] MEDS ORDERED: HEPARIN 1,000 UNITS/ML 10ML VIAL (FOR RADIOLOGY& DIALYSIS ONLY) IV ONE (11:00)
[2017-02-03] MEDS ORDERED: POTASSIUM CHLORIDE 10 MEQ SR TABLET PO ONE (12:00)
[2017-02-03] MEDS: ISOSORBIDE MON. (IMDUR) 30 MG XR TAB PO SCH ×2 (12:39→20:24)
[2017-02-03] MEDS: CALCITRIOL 0.25 MCG CAP (S0169) PO SCH (12:39)
[2017-02-03] MEDS: amLODIPine 10 MG TAB PO SCH (12:40)
[2017-02-03] MEDS: CitaloPRAM (CeleXA) 20 MG TAB PO SCH (12:40)
[2017-02-03] MEDS: LOSARTAN 50 MG TAB PO SCH (12:41)
[2017-02-03] MEDS: ATORVASTATIN 20 MG TAB PO SCH (12:42)
[2017-02-03] MEDS: ATENOLOL 50 MG TAB PO SCH (12:42)
[2017-02-03] MEDS: cloNIDine 0.1 MG TAB PO SCH ×2 (12:43→20:24)
[2017-02-03] MEDS: VITAMIN D 1,000 INTERNATIONAL UNITS TABLET PO SCH (12:44)
--- NOTE | 2017-02-03 13:25 | REP ---
IMAGES DURING LEFT UPPER EXTREMITY VENOGRAM: Multiple images are obtained during left upper extremity venogram. There is contrast seen flowing through the left axillary and subclavian veins. 0.4 minutes fluoroscopy time utilized for the procedure. Signed by Alex Tay MD 02/03/2017 04:27 P
--- NOTE | 2017-02-03 13:44 | IPN ---
DATE: 02/02/2017 Patient seen and examined at the bedside. Chest has been reviewed. Afebrile over the past 24 hours. No complaints this morning. Pain is improved to the right neck. Dialysis catheter has been removed. PHYSICAL EXAMINATION: VITAL SIGNS: Temperature 97.6, pulse 64, respiratory rate 20, blood pressure 147/69, 91% on room air. LUNGS: Clear to auscultation. No wheezes, rales, or rhonchi. HEART: S1, S2. Sinus rhythm. ABDOMEN: Soft, nontender, nondistended. Normoactive bowel sounds. EXTREMITIES: No edema. 2+ pulses. LABORATORY DATA: CBC and metabolic panel have been reviewed. Microbiology reviewed. Blood cultures negative. ASSESSMENT AND PLAN: This is a 71-year-old female with a history of end stage renal disease on maintenance hemodialysis, hypertension, diabetes, obesity, chronic obstructive pulmonary disease (COPD), congestive heart failure (CHF), stage IV chronic kidney disease, obstructive sleep apnea (DAGMAR), anemia, vitamin D deficiency, coronary artery disease, angioplasty, stent in 2011, presents to the emergency room with complaints of pain in the right neck at the dialysis catheter area, unable to sleep with some erythema. The patient is admitted for infected Shiley catheter infection. CURRENT ISSUES: 1. Infected dialysis catheter. At this time, the patient is on broad spectrum antibiotics, vancomycin and Zosyn. Appears to be localized since there is no bacteremia. Dialysis catheter has been discontinued. Dr. Mcintosh, vascular surgery, to assess the patient's graft on the left arm for access with a venogram on . 2. End-stage renal disease, on dialysis, secondary diabetes, hypertension, currently on maintenance hemodialysis, managed by Dr. Sommer. 3. Hyperkalemia. Resolved with dialysis. 4. Hypertension. Continue on Norvasc, atenolol, losartan, clonidine, isosorbide. 5. Type 2 diabetes, controlled. 6. Hyperlipidemia, on Lipitor. 7. Hyperparathyroidism secondary to renal failure, on calcitriol and vitamin D. 8. Depression, on Celexa. 9. Diet. Renal diet.
[2017-02-03] MEDS: VANCOMYCIN HCL 1,000 MG, VIAL MATE ADAPTER 1 EACH in D5W 250 ML IV SCH (17:03)
[2017-02-03] MEDS: CHECK TO SEE IF PATIENT IS RECEIVING DIALYSIS TODAY AND REFER TO THE VANCOMYCIN ORDER XX SCH (17:05)
--- NOTE | 2017-02-03 20:53 | IPN ---
DATE: 02/03/2017 Patient seen and examined at the bed side. Chart has been reviewed. She still complains of slight discomfort at the right neck, but significantly improved from previous rating this as 3 or 4 out of 10. Afebrile overnight. No other issues per nursing. Denies any chest pain, pressure or tightness, shortness of breath, lightheadedness, near syncope, palpitations, generalized weakness, nausea, vomiting, diarrhea, abdominal pain, cough or chills. Temperature 98.6, pulse 71, respiratory 20, blood pressure 144/70, 90% on room air. GENERAL: Awake, alert, and oriented times three, answering questions appropriately. No jugular venous distention. Catheter site appears improved. Decreasing erythema and tenderness. LUNGS: Diminished breath sounds with coarse rhonchi. HEART: S1, S2, sinus rhythm. ABDOMEN: Soft, non-tender, non-distended. Obese. EXTREMITIES: Positive 1+ pitting edema. LABORATORY DATA: White count 7.8, hemoglobin 9.2, hematocrit 27, platelet count 260, sodium 129, potassium 3.3, chloride 96, bicarbonate 26, BUN 34, creatinine 5.86, glucose of 104. ASSESSMENT AND PLAN: This is a 71-year-old female wit history of end stage renal disease on maintenance hemodialysis, hypertension, diabetes, obesity, chronic obstructive pulmonary disease, hyperlipidemia, stage 4 chronic kidney disease, congestive heart failure, depression, obstructive sleep apnea, anemia, vitamin D deficiency, coronary artery disease, angioplasty and stent 2011 who presented to the emergency room with complaints of right neck pain at the dialysis catheter area, unable to sleep with erythema. Patient was admitted for infected Shiley catheter infection. 1. Infection Shiley catheter site. Currently on IV vancomycin with renal dosing. Vascular surgeon, Dr. Mcintosh has been consulted, has discontinued the catheter with evaluation of the left upper extremity fistula today via venogram. Dr. Flores has been made aware of current plan. Blood cultures are negative. 2. End stage renal disease. Maintenance hemodialysis secondary to diabetes. Maintained dialysis management Dr. Sommer, senior ios software engineer. 3. Hyperkalemia. Resolved. Currently with low potassium, which has been supplemented. 4. Hypertension. Continue on Norvasc, atenolol, losartan, clonidine and isosorbide. 5. Type 2 diabetes. Appears to be controlled. 6. Hyperlipidemia. On chronic Lipitor. 7. Hyperparathyroidism secondary to renal failure, on calcitriol and vitamin D. 8. Depression on Celexa. 9. Diet. Renal diet. 10. Deep vein thrombosis prophylaxis. At this time with compression stockings. DISPOSITION: The patient is continued on empiric vancomycin and Zosyn with renal dosing to be continued as outpatient. Blood cultures are still negative at this time. Defer to Dr. Sommer to administer as outpatient. May be discharge if dialysis access is obtained and antibiotics can be given as outpatient.
[2017-02-03 22:00] VITALS: BP 138/64
[2017-02-04] MEDS: IPRATROPIUM 0.5MG/ALBUTEROL 2.5MG INH SOL UD 3ML (DUONEB)(J7620) NEB SCH ×4 (01:43→20:16)
--- NOTE | 2017-02-04 03:09 | IPN ---
DATE OF SERVICE: 02/03/2017 SUBJECTIVE: Patient was seen and examined at the bedside today morning during hemodialysis. Patient came back after fistulogram by vascular surgery and fistula is okay to use at this time. We were able to access the fistula, but with difficulty, but patient is being dialyzed at this time. REVIEW OF SYSTEMS: Patient denies any fevers, chills, rigors, headache, nausea, vomiting, chest pain, shortness of breath, pain abdomen, constipation or diarrhea. Rest of review of systems is negative. OBJECTIVE: VITAL SIGNS: Temperature is 98.6 degrees Fahrenheit. Blood pressure is 144/70. Pulse is 71. Respiratory rate of 18. Saturating 90% on room air. Intake and output: Urine output is not recorded today. Weight on the bed scale is 96.4 kg. PHYSICAL EXAMINATION: GENERAL: Patient is awake, alert, oriented times three, lying in bed. No apparent distress. HEAD/NECK EXAM: Extraocular muscles intact. Pupils are equally round and reactive to light. Mucous membranes are moist. Neck is supple. The right-sided neck swelling and tenderness is getting better. CARDIOVASCULAR: S1, S2. Regular rate. No murmur, rub or gallop. RESPIRATORY: Chest is clear to auscultation bilaterally. Bilateral equal air entry. No rales or rhonchi. ABDOMEN: Soft. Positive bowel sounds. Nontender. No ascites. No organomegaly. EXTREMITIES: No clubbing or cyanosis. Pulses are 2+. CENTRAL NERVOUS SYSTEM: No focal neurological deficit. Power is 5/5 in all extremities. LABORATORY REVIEW: CBC showed a WBC of 7.8, hemoglobin 9.2, platelets are 260. BMP showed a sodium of 129, potassium 3.3, chloride 96, bicarbonate 22, BUN 34, creatinine is 5.8. Microbiology: Cultures are negative so far. CURRENT INPATIENT MEDICATIONS: The patient's medications were all reviewed by me. She continues to be on empiric intravenous (IV) Zosyn and vancomycin. There is no other change in the medications today as compared with yesterday. ASSESSMENT: 71-year-old female with past medical history of end-stage renal disease on hemodialysis via right IJ tunneled hemodialysis catheter, admitted this time because of catheter infection. PLAN: 1. Infected right internal jugular (IJ) tunneled hemodialysis catheter site. The patient's catheter was removed on admission. She is currently on empiric vancomycin and Zosyn. Blood cultures are negative. Continue the antibiotics at this time. 2. Dialysis access. The patient has a left upper arm arteriovenous (AV) fistula. Fistulogram was done. One of the venous branches was ligated. Fistula is okay to use today; however, if we have problems with the fistula, patient will get the tunneled hemodialysis catheter placement tomorrow. Continue the dialysis through the AV fistula for now. 3. End-stage renal disease on hemodialysis. Today is patient's regular day of dialysis. She is being dialyzed via the fistula. If we have problems with the fistula, she will be dialyzed again via tunneled hemodialysis catheter, which will be placed via vascular surgery. 4. Hyponatremia. It is secondary to fluid overload and end-stage renal disease. Sodium is expected to improve with hemodialysis. 5. Hypokalemia. Patient will be dialyzed against a 4K bath that will help improve potassium level as well. 6. Hypertension. Blood pressure is acceptable with the current regimen at this time.
[2017-02-04 06:00] VITALS: BP 130/68
[2017-02-04 07:14] LABS: BASO % 0.7 % (0.0-1.0); EOS # 0.3 K/mm3 (0.0-0.50); EOS % 4.5 % (0.0-3.0); LARGE UNSTAINED CELL # 0.2 K/mm3 (0.0-0.4); LARGE UNSTAINED CELL % 2.3 % (0.0-4.0); LYMPH # 1.1 K/mm3 (1.5-4.5); MEAN CORPUSCULAR HEMOGLOBIN 34.7 pg (27.0-33.0); MEAN CORPUSCULAR HGB CONC 33.5 g/dl (32.0-36.5); MEAN CORPUSCULAR VOLUME 103.7 fl (80.0-96.0); MONO # 0.5 K/mm3 (0.0-0.8); MONO % 6.6 % (0.0-5.0); NEUTROPHILS # 5.1 K/mm3 (1.8-7.7); NEUTROPHILS % 71.9 % (36.0-66.0); PLATELET COUNT, AUTOMATED 308 k/mm3 (150-450); RED CELL DISTRIBUTION WIDTH 14.4 % (11.5-14.5); WHITE BLOOD COUNT 7.1 K/mm3 (4.0-10.0)
[2017-02-04 07:19] LABS: ALBUMIN 2.8 GM/DL (3.2-5.2); ALBUMIN/GLOBULIN RATIO 0.82 (1.00-1.93); BILIRUBIN,TOTAL 0.4 MG/DL (0.2-1.0); CALCIUM LEVEL 8.8 MG/DL (8.8-10.2); CREATININE FOR GFR 5.44 MG/DL (0.55-1.02); GLOMERULAR FILTRATION RATE 8.2 (>39); MAGNESIUM LEVEL 2.1 MG/DL (1.8-2.4); POTASSIUM SERUM 4.2 MEQ/L (3.5-5.1); TOTAL PROTEIN 6.2 GM/DL (6.4-8.2)
[2017-02-04 09:30] VITALS: BP 138/65
[2017-02-04] MEDS: (RENVELA) SEVELAMER **CARBONate** 800 MG TAB PO SCH ×3 (09:31→18:08)
[2017-02-04] MEDS: CALCITRIOL 0.25 MCG CAP (S0169) PO SCH (09:31)
[2017-02-04] MEDS: ISOSORBIDE MON. (IMDUR) 30 MG XR TAB PO SCH ×2 (09:32→20:38)
[2017-02-04] MEDS: VITAMIN D 1,000 INTERNATIONAL UNITS TABLET PO SCH (09:36)
[2017-02-04] MEDS: CitaloPRAM (CeleXA) 20 MG TAB PO SCH (09:36)
[2017-02-04] MEDS: LOSARTAN 50 MG TAB PO SCH (09:37)
[2017-02-04] MEDS: ATORVASTATIN 20 MG TAB PO SCH (09:38)
[2017-02-04] MEDS: cloNIDine 0.1 MG TAB PO SCH ×3 (09:38→20:38)
[2017-02-04] MEDS: PIPERACILLIN/TAZOBACTAM SOD 2.25 GM in D5W MINI-BAG PLUS 50 ML IV SCH ×2 (09:45→20:37)
[2017-02-04] MEDS: HumaLOG INSULIN (NovoLOG) PER UNIT SC SCH ×4 (09:46→20:39)
[2017-02-04] MEDS: amLODIPine 10 MG TAB PO SCH ×2 (09:59→10:11)
[2017-02-04] MEDS: ATENOLOL 50 MG TAB PO SCH (10:00)
[2017-02-04] MEDS ORDERED: HEPARIN 1,000 UNITS/ML 10ML VIAL (FOR RADIOLOGY& DIALYSIS ONLY) As Ordered ONE (11:32)
[2017-02-04] MEDS ORDERED: LIDOCAINE 2% MDV 20 ML VIAL As Ordered ONE (11:49)
[2017-02-04] MEDS: SENOKOT S TAB PO SCH ×2 (13:03→20:38)
[2017-02-04 14:00] VITALS: BP 124/72
[2017-02-04] MEDS: CHECK TO SEE IF PATIENT IS RECEIVING DIALYSIS TODAY AND REFER TO THE VANCOMYCIN ORDER XX SCH (16:00)
--- NOTE | 2017-02-04 17:02 | REP ---
RIGHT UPPER EXTREMITY DUPLEX DOPPLER VENOUS ULTRASOUND: Real-time ultrasound evaluation and duplex Doppler interrogation of the right upper extremity deep vein system is performed. There is no definite thrombus in the right jugular vein. There is thrombus, however, in the right subclavian vein partially occluding it. Right axillary, brachial, basilic and cephalic veins are fully compressible with transducer pressure and demonstrate normal flow with no deep vein thrombosis. IMPRESSION: Partial DVT right subclavian vein. Signed by Alex Tay MD 02/04/2017 05:27 P
[2017-02-04] MEDS: APIXABAN 5 MG TAB (ELIQUIS) PO SCH (18:15)
--- NOTE | 2017-02-04 19:56 | IPN ---
DATE: 02/04/2017 Patient is seen and examined at the bedside. Chart has been reviewed. This morning patient was anxious to be discharged home, however the graft yesterday was not stable enough to complete the full 4 hour course of dialysis. She continues to have bulging at the area. Doppler today to be performed to rule out deep venous thrombosis (DVT). Otherwise, no fever or chills, no nausea, vomiting, chest pain, pressure or tightness, shortness of breath. She still has slight discomfort around the right neck area where the previous catheter was placed. Temperature 98.4, pulse 58, respiratory rate 18, blood pressure 138/65, 95% on room air. GENERAL: Patient is awake, alert, oriented times three, answering questions appropriately. No jugular venous distention. Neck has improved swelling and tenderness. HEART: S1, S2, sinus rhythm. No murmurs, rubs, or gallops. LUNGS: Decreased air entry, but clear to auscultation. No wheezing, rales, or rhonchi. ABDOMEN: Soft, nontender, nondistended. Positive bowel sounds. Obese abdomen. EXTREMITIES: 2+ pulses. No clubbing or cyanosis. Chronic lower extremity edema. Left upper extremity graft has some thickening. White count 7, hemoglobin 9, hematocrit 27, platelet count 308, sodium 131, potassium 4.2, chloride 100, bicarbonate 21, BUN 29, creatinine 5.44, glucose of 121. Two sets of blood cultures are negative. ASSESSMENT AND PLAN: This is a 71-year-old female with history of end-stage renal disease on maintenance hemodialysis, hypertension, diabetes, chronic obstructive pulmonary disease (COPD), hyperlipidemia, stage IV chronic kidney disease (CKD), congestive heart failure (CHF), depression, obstructive sleep apnea (DAGMAR), anemia, vitamin D deficiency, coronary artery disease (CAD), angioplasty and stent 2011, presented to the emergency room (ER) with complaints of right neck pain at the dialysis catheter area, unable to sleep, with erythema, admitted for infected Shiley catheter infection. 1. Infection Shiley catheter. Currently IV vancomycin with renal dosing. Vascular surgeon, Dr. Mcintosh, has been consulted. Will place another catheter due to the left upper extremity fistula not being ready for maintenance dialysis. 2. End-stage renal disease on maintenance hemodialysis. Managed by Dr. Sommer. 3. Hypertension. On Norvasc, atenolol, and losartan, with holding parameters for a heart rate less than 60. 4. Type 2 diabetes, controlled. 5. Hyperlipidemia. On Lipitor. 6. Hyperparathyroidism secondary to renal failure. On calcitriol and vitamin D. 7. Depression. On Celexa. 8. Diet renal. 9. Deep vein thrombosis (DVT) prophylaxis. Patient is undergoing procedure today therefore will hold this, currently with compression stockings. DISPOSITION: The patient will need a hemodialysis catheter placed today by vascular surgeon, Dr. Mcintosh. Dialysis to be done and then discharged when Dr. Sommer clears the patient for home. Will continue IV antibiotics as outpatient during dialysis.
[2017-02-04 22:00] VITALS: BP 148/85
--- NOTE | 2017-02-04 22:26 | IPN ---
DATE: 02/04/2017 SUBJECTIVE: The patient was seen and examined at the bedside today morning. Last 24-hour events were noted. The patient was dialyzed via the left upper arm arteriovenous (AV) fistula. However, the fistula was very difficult to cannulate and after two hours, the needles were moved because of patient's movement and she could not complete her hemodialysis. The patient is supposed to have left internal jugular (IJ) tunneled hemodialysis catheter placed today. REVIEW OF SYSTEMS: The patient denies any fevers, chills, rigors, headaches, nausea, vomiting, chest pain, shortness of breath, pain abdomen, constipation, or diarrhea. The patient does report she still has some swelling and tenderness on the right IJ tunneled catheter site that was removed on admission. Rest of review of systems is negative. OBJECTIVE: VITAL SIGNS: Temperature is 98.7 degrees Fahrenheit, blood pressure is 138/65, pulse is 58, respiratory rate of 20, saturating 95% on room air. INTAKE AND OUTPUT: Urine output recorded as 550 mL so far today since overnight. Weight in the bed scale is 97.5 kg. PHYSICAL EXAMINATION: GENERAL: The patient is awake, alert, and oriented times three, sitting in the bed in no apparent distress. HEAD/NECK: Extraocular muscles intact. Pupils equal, round, and reactive to light. Mucous membranes are moist. Neck is supple. There is right-sided neck swelling. Tenderness is better, but she still has very firm swelling of the right IJ vein and right-sided supraclavicular region. CARDIOVASCULAR: S1, S2. Regular rate. No murmur, rub, or gallop. RESPIRATORY: Chest is clear to auscultation bilaterally. Bilateral equal air entry. No rales or rhonchi. ABDOMEN: Soft. Positive bowel sounds. Nontender. No ascites. No organomegaly. EXTREMITIES: No clubbing or cyanosis. Pulses are 2+. CENTRAL NERVOUS SYSTEM (SUSTAINABLE DESIGN CONSULTANT): No focal neurological deficit. Power is 5/5 in all extremities. LABORATORY DATA: CBC showed a WBC 7.1, hemoglobin 9.1, platelets are 308. BMP showed sodium 131, potassium 4.2, chloride 100, bicarbonate 21, BUN 29, creatinine 5.4, calcium 8.8, albumin 2.8. MICROBIOLOGY: Blood cultures are negative so far. CURRENT INPATIENT MEDICATIONS: The patient's medications were all reviewed by me. She continues to be on intravenous (IV) Zosyn and IV vancomycin. There is no other change in the medications today as compared with yesterday. ASSESSMENT: A 71-year-old female with past medical history of end-stage renal disease on hemodialysis. She was admitted this time because of infected right IJ tunneled hemodialysis catheter. PLAN: 1. Infected right IJ tunneled hemodialysis catheter: The catheter was removed on admission. She is currently on empiric vancomycin and Zosyn. Blood cultures are negative. 2. Firm swelling in the right IJ vein and right supraclavicular region: I have ordered a Doppler of the right subclavian and right IJ vein to rule out thrombosis. If she does have thrombosis in the central veins, then she would need to start anticoagulation for that. 3. Dialysis access. The patient has a left upper arm AV fistula. Fistulogram was done yesterday. Fistula was okay to use; however, it is still very small. We had difficulty in cannulating the vein and she was not able to finish full treatment because of needle misplacement. The patient is going to get left IJ tunneled hemodialysis catheter placed today by vascular surgery. 4. End-stage renal disease on hemodialysis. The patient's regular dialysis days are Tuesday, , Tuesday. She will get the catheter placed today. Next hemodialysis will be tomorrow as per her regular schedule. 5. Discharge planning: If patient's Doppler of the central veins is negative and she gets the catheter placed today, she can be discharged home and she can get dialyzed as outpatient tomorrow. Plan of care was discussed with the hospitalist, Dr. Norma Yates.
[2017-02-05] MEDS: PERCOCET 5MG/325MG TAB PO PRN (00:02)
[2017-02-05] MEDS: IPRATROPIUM 0.5MG/ALBUTEROL 2.5MG INH SOL UD 3ML (DUONEB)(J7620) NEB SCH ×2 (02:00→07:17)
[2017-02-05 05:44] LABS: BASO % 0.6 % (0.0-1.0); EOS # 0.5 K/mm3 (0.0-0.50); EOS % 5.5 % (0.0-3.0); LARGE UNSTAINED CELL # 0.1 K/mm3 (0.0-0.4); LARGE UNSTAINED CELL % 1.6 % (0.0-4.0); LYMPH # 1.5 K/mm3 (1.5-4.5); MEAN CORPUSCULAR HEMOGLOBIN 33.9 pg (27.0-33.0); MEAN CORPUSCULAR HGB CONC 32.3 g/dl (32.0-36.5); MONO # 0.6 K/mm3 (0.0-0.8); MONO % 6.1 % (0.0-5.0); NEUTROPHILS # 6.4 K/mm3 (1.8-7.7); NEUTROPHILS % 71.2 % (36.0-66.0); PLATELET COUNT, AUTOMATED 351 k/mm3 (150-450); RED CELL DISTRIBUTION WIDTH 14.3 % (11.5-14.5)
[2017-02-05] MEDS: PIPERACILLIN/TAZOBACTAM SOD 2.25 GM in D5W MINI-BAG PLUS 50 ML IV SCH (05:49)
[2017-02-05] MEDS: ATENOLOL 50 MG TAB PO SCH (05:49)
[2017-02-05] MEDS: LOSARTAN 50 MG TAB PO SCH (05:50)
[2017-02-05] MEDS: ATORVASTATIN 20 MG TAB PO SCH (05:50)
[2017-02-05] MEDS: APIXABAN 5 MG TAB (ELIQUIS) PO SCH (05:50)
[2017-02-05] MEDS: CALCITRIOL 0.25 MCG CAP (S0169) PO SCH (05:50)
[2017-02-05] MEDS: (RENVELA) SEVELAMER **CARBONate** 800 MG TAB PO SCH (05:50)
[2017-02-05] MEDS: ISOSORBIDE MON. (IMDUR) 30 MG XR TAB PO SCH (05:50)
[2017-02-05] MEDS: CitaloPRAM (CeleXA) 20 MG TAB PO SCH (05:50)
[2017-02-05] MEDS: VITAMIN D 1,000 INTERNATIONAL UNITS TABLET PO SCH (05:51)
[2017-02-05] MEDS: SENOKOT S TAB PO SCH (05:51)
[2017-02-05] MEDS: cloNIDine 0.1 MG TAB PO SCH (05:51)
[2017-02-05 05:54] VITALS: BP 148/98
[2017-02-05] MEDS: amLODIPine 10 MG TAB PO SCH (05:54)
[2017-02-05 06:00] VITALS: BP 148/98
[2017-02-05 06:02] LABS: ALBUMIN 2.8 GM/DL (3.2-5.2); ALBUMIN/GLOBULIN RATIO 0.74 (1.00-1.93); BILIRUBIN,TOTAL 0.4 MG/DL (0.2-1.0); CALCIUM LEVEL 8.5 MG/DL (8.8-10.2); CREATININE FOR GFR 6.14 MG/DL (0.55-1.02); GLOMERULAR FILTRATION RATE 7.1 (>39); MAGNESIUM LEVEL 2.2 MG/DL (1.8-2.4); POTASSIUM SERUM 4.3 MEQ/L (3.5-5.1); TOTAL PROTEIN 6.6 GM/DL (6.4-8.2)
[2017-02-05] MEDS: HumaLOG INSULIN (NovoLOG) PER UNIT SC SCH (07:55)
[2017-02-05] MEDS ORDERED: ELIQ5TAB PO ×2 (08:43→08:48)
[2017-02-05 11:45] LABS: VANCOMYCIN RANDOM 20.7 UG/ML
--- NOTE | 2017-02-06 10:31 | DSES ---
DATE OF ADMISSION: 01/31/2017 DATE OF DISCHARGE: 02/05/2017 PRIMARY CARE PROVIDER: Patient could not recall. TELLER HEAD: Dr. Sommer, Dr. Hernandez. CONSULTANTS DURING THIS ADMISSION: Dr. Mcintosh, vascular surgery. PROCEDURES DURING THIS ADMISSION: Removal of infected Shiley catheter and placement of tunneled hemodialysis catheter. PRIMARY DISCHARGE DIAGNOSES: Infected Shiley catheter. Infected right internal jugular vein tunneled hemodialysis catheter. Partial deep venous thrombosis (DVT) in the right subclavian vein. End stage renal disease on maintenance hemodialysis. Hypertension. Type 2 diabetes. Hyperlipidemia. Hyperparathyroidism secondary to renal failure. Depression. DISCHARGE MEDICATIONS: - Eliquis 10 mg by mouth twice daily for 7 days as loading dose then 5 mg by mouth twice daily - acetaminophen extra strength 500 every 6 hours as needed for pain or fever - Norvasc 10 mg daily - Anoro Ellipta one puff inhaled daily - atenolol 50 daily - atorvastatin 20 daily - calcitriol 0.25 mcg daily - vitamin D3 1000 units daily - citalopram 20 mg daily - Clonidine 0.1 mg twice daily - isosorbide mononitrate 30 mg twice daily - losartan 100 mg daily - Sevelamer 800 mg with meals - vancomycin to be administered during hemodialysis days to be managed by Dr. Sommer or Dr. Hernandez as outpatient HOSPITAL COURSE: This is a 71-year-old female with history of end stage renal disease secondary to diabetes on maintenance hemodialysis on Tuesday, , Tuesday, hypertension, chronic obstructive pulmonary disease (COPD), hyperlipidemia, stage IV chronic kidney disease, congestive heart failure (CHF), depression, obstructive sleep apnea, anemia, vitamin D deficiency, coronary artery disease (CAD), angioplasty and stent 2011, presented to the emergency room with complaints of right sided neck pain at the dialysis catheter area, unable to sleep with erythema, admitted for infected right internal jugular vein catheter, started on vancomycin and Zosyn. On admission, patient was found to be febrile 100.2 temperature, white count was only slightly elevated at 10.2, neutrophil predominance 78% with no bandemia. Patient was dialyzed and vascular surgery Dr. Mcintosh was consulted for removal of the infected right internal jugular tunneled hemodialysis catheter. Upon arrival blood cultures were obtained which grew no bacteria. She was continued on vancomycin and Zosyn. Blood culture remained stable. She had episodes of hyperkalemia which was treated with hemodialysis. Patient had chronic hyponatremia with no mental status changes. The left AV graft was evaluated by a venogram by Dr. Mcintosh on 02/03/2017. She underwent dialysis via the left arm AV fistula with poor results and dialysis had to be discontinued 2-1/2 hours into the dialysis session as this did not appear to be mature enough to handle the full course of hemodialysis. Dr. Mcintosh, vascular surgeon, then placed a tunneled catheter for hemodialysis needs. She remained afebrile with no white count and was discharged in stable condition to have repeat dialysis on 02/05/2017 as outpatient. Patient continued to have swelling of the right brachial vein evaluated with ultrasound which showed a partial DVT in the right subclavian vein. Patient was started on Xarelto 10 mg by mouth every 12 hourly as loading dose for 7 days hen 5 mg twice daily. Prior authorization was done and patient is discharged in stable condition to complete her course as outpatient. LABS ON DISCHARGE: White count 9, hemoglobin 9.3, hematocrit 28.8, platelet count 351. Sodium 133, potassium 4.3, chloride 100, bicarbonate 24, BUN 37, creatinine 6.14, glucose of 121. MICROBIOLOGY: Two sets of blood cultures 01/31 no growth after 72 hours. IMAGING STUDIES: CT of the neck 01/31 shows ill-defined mass in the right subclavian area most consistent with phlegmon encasing the right superior vena cava catheter in the right anterior subcutaneous tissue superior to the right clavicle, minimal mass effect on the hypopharynx. Chest CT on 01/31 shows two left lung nodules measuring 6 and 7 mm in diameter with fibrocalcific scarring in the right upper lobe with small calcified lymph nodes in the right hilum. No suspicious adenopathy or fluid collection. Diffuse low density thickening of the left adrenal gland probably represents diffuse adenomatous change. Venous Doppler on 02/04/2017 shows partial deep venous thrombosis (DVT) in the right subclavian vein. Time spent on discharge: 30 minutes. [facility]
--- NOTE | 2017-02-10 17:00 | RO ---
DATE OF PROCEDURE: 02/03/2017 PREPROCEDURE DIAGNOSIS: End-stage renal disease, infected right internal jugular vein PermCath, dysfunctional left brachiocephalic arteriovenous fistula. POSTPROCEDURE DIAGNOSIS: End-stage renal disease, infected right internal jugular vein PermCath, dysfunctional left brachiocephalic arteriovenous fistula. PROCEDURE: Left brachiocephalic arteriovenous fistulogram, ligation of large side branch of the cephalic vein. SURGEON: Morgan Mcintosh MD SAFETY INSTRUCTOR: ANESTHESIA: Local with sedation. ESTIMATED BLOOD LOSS: Minimal. IV FLUID: 100 mL. COMPLICATIONS: None. DRAINS: None. SPECIMENS: None. IMPLANTS: None. INDICATION; The patient is a 71-year-old female who presented with pain and swelling in the neck and was found to have a phlegmon and infection around the right internal jugular vein PermCath. The catheter was removed, and the patient has a left brachiocephalic arteriovenous fistula which has not yet been able to be used due to non-maturation. The patient will undergo a fistulogram with possible angioplasty and/or stent. Risks, benefits and alternative treatment options were discussed with the patient. Alternative treatment options included but were not limited to no intervention. Risks included but were not limited to infection, bleeding, loss of arteriovenous access, steal syndrome, possible need for open surgical intervention, cerebrovascular accident, myocardial infarction, pulmonary embolus, deep vein thrombosis (DVT), loss of limb, loss of life and poor outcome. The patient understands and accepts these risks and consents to proceed. DESCRIPTION OF PROCEDURE: The patient was taken to the angiography suite, placed supine on the angiography table and then a time-out was performed confirming the correct patient and procedure after which the left upper extremity was prepped and draped in a standard surgical fashion. The arteriovenous fistula was cannulated with an angiocatheter after anesthetizing the overlying skin with 1% lidocaine. The micropuncture wire was advanced through the micropuncture needle, which was upsized to a micropuncture sheath. A fistulogram was performed, showing the cephalic vein to be large and widely patent. Into the central venous system, there was a large collateral originating off the cephalic vein and coursing into the forearm and then into the deeper venous system as well as a second collateral in the mid upper arm coursing into the deeper venous system. The fistula did not require further angioplasty as it was large enough in size, the collateral branch was draining approximately 50% of the flow into the forearm and deeper venous system. A small incision was then made over the collateral branch, which was ligated with #0 silk suture doubly. The incision was then closed using a #2-0 Vicryl in an interrupted fashion and Steri-Strips were applied. A completion fistulogram showed no further filling of the collateral with stronger flow through the arteriovenous fistula. The fistula was also easily palpable the entire length of the arm and a strong thrill was noted. Dressings were applied. The patient tolerated the procedure well. All instrument, sponge and needle counts were correct at the end of the case. There were no complications. Dr. Mcintosh was present for and directed the entire case. The patient was transferred to the holding area and subsequently to the floor in stable condition. The fistula was stable for use for hemodialysis access. RADIOLOGIC SUPERVISION INTERPRETATION: The initial fistulogram showed the cephalic vein to be widely patent and of good caliber size from the antecubital fossa to the cephalic arch. The central venous system was widely patent. There were two collaterals draining the fistula as well as the main outflow tract, one which was coursing into the forearm and then into the deeper venous system was quite large, the second one was smaller and drained from the mid upper arm into the deeper venous system off the cephalic vein. The large collateral branch was ligated with improved flow through the fistula and a thrill palpable in the arteriovenous fistula.
[2017-02-12] MEDS ORDERED: APIXABAN 5 MG TAB (ELIQUIS) PO SCH (09:00)
--- NOTE | 2017-02-28 07:06 | RO ---
DATE OF PROCEDURE: 02/04/2017 PREPROCEDURE DIAGNOSES: End stage renal disease, dysfunction left brachiocephalic arterial venous fistula. POSTPROCEDURE DIAGNOSES: End stage renal disease, dysfunction left brachiocephalic arterial venous fistula. PROCEDURE: Ultrasound and fluoroscopic guided left internal jugular vein 23 cm tip to cuff perm catheter insertion. SURGEON: Dr. Morgan Mcintosh. ORACLE APPLICATION CONSULTANT: None. ANESTHESIA: Local with 12 mL of 2% lidocaine. ESTIMATED BLOOD LOSS: COMPLICATIONS: None. DRAINS: None. SPECIMENS: None. IMPLANTS: Left internal jugular vein 23 cm tip to cuff perm catheter. INDICATION: Patient is a 71-year-old female who underwent removal of an infected right internal jugular vein PermaCath and underwent revision of her left brachiocephalic arterial venous fistula which is still unable to be used. Patient will require placement of a catheter for hemodialysis access. Risks, benefits and alternative treatment options were discussed with the patient. Alternative treatment options including but were not limited to no intervention. Risks included but were not limited to infection, bleeding, pneumothorax, hemothorax, possible need for open surgical intervention, cerebrovascular accident, myocardial infarction, pulmonary embolus, deep venous thrombosis (DVT), loss of limb, loss of life and poor outcome. Patient understands, accepts these risks and consents to proceed. PROCEDURE: The patient was taken to the angiography suite and placed supine on the angiography room table and the left neck and chest region were prepped and draped in a standard surgical fashion. A time out was performed confirming the appropriate procedure and patient, after which the ultrasound was used to evaluate the left internal jugular vein which was easily compressible, widely patent and free of thrombus. Ultrasound was used to guide congelation of the left internal jugular vein with a micropuncture needle. After anesthetizing the overlying skin with 1% lidocaine, a hard copy image was preserved. The micropuncture wire was advanced through the micropuncture needle which was upsized to a micropuncture sheath. An Amplatz wire was advanced through the micropuncture sheath which was used to sequentially dilate the left internal jugular vein under fluoroscopic guidance and an introducer sheath positioned. The catheter was brought through a puncture wound in the left chest, brought out at the puncture wound at the left internal jugular vein entry site and then advanced through the introducer sheath and positioned with the tip in the superior vena cava right atrial junction. Final fluoroscopic image showed the catheter to be in good position and good alignment. The catheter was then secured to the anterior chest wall using #2-0 Prolene suture. The puncture wound in the left neck was closed using a #3-0 Monocryl suture in inverted interrupted fashion. Steri-Strips and dressings were applied. Patient tolerated the procedure well. All instrument, sponge and needle counts were correct at the end of the case. There were no complications. Dr. Mcintosh was present for and directed the entire case. Patient was stable and transferred to the holding area in stable condition. The perm catheter is stable for use for hemodialysis access. RADIOLOGIC SUPERVISION AND INTERPRETATION: The initial ultrasound showed the left internal jugular vein to be widely patent and easily compressible and free of thrombus and ultrasound was used to guide cannulation of the left internal jugular vein with the hard copy image preserved. The catheter was then positioned after sequential dilatation of the internal jugular vein was performed under fluoroscopic guidance. The final fluoroscopic image showed no pneumothorax or hemothorax and the catheter be in the superior vena cava right atrial junction with good positioning. The catheter was stable for use for hemodialysis access.
--- NOTE | 2017-02-28 07:12 | RO ---
DATE OF PROCEDURE: 02/01/2017 PREOPERATIVE DIAGNOSIS: Right internal jugular vein Permacath removal. POSTOPERATIVE DIAGNOSIS: Right internal jugular vein Permacath removal. PROCEDURE: ATTENDING SURGEON: Dr. Morgan Mcintosh LOADER TECHNICIAN: None. ANESTHESIA: None. ESTIMATED BLOOD LOSS: Minimal. IV FLUIDS: None. COMPLICATIONS: None. DRAINS: None. SPECIMENS: None. IMPLANTS: None. INDICATION: Patient is a 71-year-old female who presented with pain and swelling overlying her right internal jugular vein Permacath. The patient underwent hemodialysis and will now undergo removal of the catheter with replacement of a new catheter in 24 to 48 hours. The risks, benefits and alternative treatment options were discussed with the patient. Alternative treatment options included, but were not limited to no intervention. Risks included, but were not limited to, infection, bleeding, pneumothorax, hemothorax, possibility for open surgical intervention, cerebrovascular accident, myocardial infarction, pulmonary embolus, deep vein thrombosis (DVT), loss of limb, loss of life, and poor outcome. The patient understands and accepts these risks and consents to proceed. PROCEDURE: The patient was prepped and draped in a standard surgical fashion. The sutures holding the Permacath in place were removed. Manual traction was applied to the Permacath, which released the subcutaneous cuff spontaneously and the catheter was removed. Manual compression was applied for ten minutes for hemostasis. Dressings were then applied. The patient tolerated the procedure well. All instrument, sponge and needle counts were correct at the end of the case. There were no complications. Dr. Mcintosh was present for and directed the entire case. The patient remained in bed in stable condition.
--- NOTE | 2017-03-03 13:02 | REP ---
C-ARM VIEW CHEST: A C-arm view of the chest is performed during placement of the dialysis catheter. Left sided dialysis catheter is seen with the tip in the right atrium. 0.4 minutes fluoroscopy time utilized. Signed by Alex Tay MD 03/03/2017 03:56 P
[2017-05-27] MEDS ORDERED: ELIQ5TAB PO (18:15)
== END 2017-02-05 10:17 | disposition home or self-care (01) | DRG 252 ==
LOC: M ED 12:34 → M ED INP 20:19 → M MSPAV 23:57
PROVIDERS: ADMIT Hospitalist; ATTEND General Practice
PROC: 05PY33Z Removal of Infusion Device from Upper Vein, Percutaneous Approach (ICD-10-PCS; 2017-02-01)
PROC: 5A1D60Z (ICD-10-PCS; 2017-02-01)
PROC: 05L Upper Veins, Occlusion (ICD-10-PCS; principal; 2017-02-03)
PROC: 02HV33Z Insertion of Infusion Device into Superior Vena Cava, Percutaneous Approach (ICD-10-PCS; 2017-02-04)
DX: T82.7XXA Infection and inflammatory reaction due to other cardiac and vascular devices, implants and grafts, initial encounter (principal); N18.6 End stage renal disease; N25.81 Secondary hyperparathyroidism of renal origin; N17.9 Acute kidney failure, unspecified; I13.2 Hypertensive heart and chronic kidney disease with heart failure and with stage 5 chronic kidney disease, or end stage renal disease; I82.B11 Acute embolism and thrombosis of right subclavian vein; Y83.1 Surgical operation with implant of artificial internal device as the cause of abnormal reaction of the patient, or of later complication, without mention of misadventure at the time of the procedure; E87.5 Hyperkalemia; E11.22 Type 2 diabetes mellitus with diabetic chronic kidney disease; J44.9 Chronic obstructive pulmonary disease, unspecified; E78.5 Hyperlipidemia, unspecified; F17.210 Nicotine dependence, cigarettes, uncomplicated; G47.33 Obstructive sleep apnea (adult) (pediatric); I50.9 Heart failure, unspecified; R91.8 Other nonspecific abnormal finding of lung field; E66.9 Obesity, unspecified; F32.9 Major depressive disorder, single episode, unspecified; D63.1 Anemia in chronic kidney disease; I25.10 Atherosclerotic heart disease of native coronary artery without angina pectoris; Z95.5 Presence of coronary angioplasty implant and graft; Z79.899 Other long term (current) drug therapy; Z99.2 Dependence on renal dialysis; Z68.39 Body mass index [BMI] 39.0-39.9, adult

== ENCOUNTER 2017-04-25 19:20 | Emergency (ER) | payer MEDICARE, BC ==
[~2017-04-25] VITALS: Ht 157.5 cm; Wt 98.2 kg
[~2017-04-25 19:20] MED LIST changes: +ANOR1AER INH; +CLON-412 PO; +ELIQ5TAB PO; +LOSA100T36 PO; +VITA-122 PO
[2017-04-25 20:21] VITALS: BP 160/66
[2017-05-27] MEDS ORDERED: ELIQ5TAB PO (18:15)
== END 2017-04-25 21:36 | disposition left against medical advice (07) ==
LOC: M ED 19:20
DX: R22.0 Localized swelling, mass and lump, head (principal); Z53.21 Procedure and treatment not carried out due to patient leaving prior to being seen by health care provider

== ENCOUNTER → 2017-06-10 | Outpatient (CLI) | payer MEDICARE, BC ==
[~2017-06-10] MED LIST changes: +HEPARIN 1,000 UNITS/ML 10ML VIAL (FOR RADIOLOGY& DIALYSIS ONLY) As Ordered ONE; +MIDAZOLAM INJ 2 MG/2 ML VIAL (J2250) As Ordered ONE; +fentaNYL 100 MCG/2 ML INJECTION (J3010) As Ordered ONE
--- NOTE | 2017-07-01 10:08 | REPIR ---
DATE OF PROCEDURE: 06/10/2017 PREPROCEDURE DIAGNOSES: End stage renal disease, dysfunctional left brachiocephalic arteriovenous fistula. POSTPROCEDURE DIAGNOSES: End stage renal disease, dysfunctional left brachiocephalic arteriovenous fistula. PROCEDURE: Left brachiocephalic arteriovenous fistulogram, retrograde left brachial artery angiogram, selective left brachial artery catheter placement with angiogram and runoff, placement of two sheaths and two cannulations of the left brachiocephalic arteriovenous fistula, left cephalic vein angioplasty with 10 x 8 balloon, left cephalic vein angioplasty with 8 x 4 balloon, left brachial artery angioplasty with 8 x 4 balloon. SURGEON: Dr. Morgan Mcintosh. CALIBRATION LABORATORY TECHNICIAN: Riddhi Delgadillo. ANESTHESIA: ESTIMATED BLOOD LOSS: INDICATION: The patient is a 71-year-old female with end stage renal disease and a dysfunctional left brachiocephalic arteriovenous fistula that has not been able to be used for hemodialysis. PROCEDURE: The patient was taken to the angiography suite and placed supine on the angiography room table. A time out was completed confirming the correct patient, procedure and laterality, after which the fistula was cannulated and a fistulogram performed that showed a stenosis of approximately 80% in the cephalic vein in the mid upper arm which was then angioplastied with a 10 x 8 balloon. A retrograde brachial artery angiogram was performed during inflation of the balloon showing stenosis at the arteriovenous anastomosis which was approximately 60%. A second cannulation of the fistula was performed and a catheter placed in the brachial artery with an angiogram performed confirming the stenosis after which the cephalic vein and brachial vein at the anastomosis were angioplastied with an 8 x 4 balloon. A completion brachial artery angiogram with runoff showed resolution of the stenoses. Catheters and wires were removed. The sheaths were removed and #2-0 Prolene sutures placed at the puncture sites for hemostasis which were subsequently removed prior to discharge. Dressings were applied. Patient tolerated the procedure well. All instrument, sponge and needle counts were correct at the end of the case. There were no complications. Dr. Mcintosh was present for and directed the entire case. Patient was transferred to the holding area and subsequently discharged in stable condition. The fistula is stable for use for dialysis access. RADIOLOGICAL SUPERVISION INTERPRETATION: The initial fistulogram showed stenosis in the cephalic vein in the mid arm which was angioplastied with a 10 x 8 balloon. The retrograde brachial artery angiogram showed stenosis at the arteriovenous anastomosis which was angioplastied with an 8 x 4 balloon within the cephalic vein and brachial artery. A completion brachial artery angiograph with runoff showed resolution of the stenosis with good flow through the fistula with no residual stenosis remaining. The fistula is stable for use for dialysis access.
== END | disposition home or self-care (01) ==
LOC: M IRPRO 06:54
PROVIDERS: ATTEND Surgery Vascular Surgery
DX: T82.858A Stenosis of other vascular prosthetic devices, implants and grafts, initial encounter (principal); N18.6 End stage renal disease
CPT/HCPCS: 36902; C1725; C1769; C1894; J2250; J3010

== ENCOUNTER → 2017-06-13 | Outpatient (CLI) | payer MEDICARE, BC ==
[~2017-06-13] MED LIST changes: +LIDOCAINE 2% MDV 20 ML VIAL As Ordered ONE; -MIDAZOLAM INJ 2 MG/2 ML VIAL (J2250) As Ordered ONE; -fentaNYL 100 MCG/2 ML INJECTION (J3010) As Ordered ONE
--- NOTE | 2017-06-29 10:31 | REPKIM ---
DATE OF PROCEDURE: 06/13/2017 PREPROCEDURE DIAGNOSES: End stage renal disease, dysfunctional left brachiocephalic arteriovenous fistula. POSTPROCEDURE DIAGNOSES: End stage renal disease, dysfunctional left brachiocephalic arteriovenous fistula. PROCEDURE: Ultrasound and fluoroscopic guided right internal jugular vein 19 cm tip to cuff PermCath insertion. SURGEON: Dr. Morgan Mcintosh. FINANCE LECTURER: Shirlene Lim. ANESTHESIA: Local with 20 mL of 2% lidocaine. FLUORO TIME: 0.222 minutes. CONTRAST: None. COMPLICATIONS: None. DRAINS: None. SPECIMENS: None. IMPLANTS: 19 cm tip to cuff right internal jugular vein PermCath. INDICATION: The patient is a 71-year-old female with end stage renal disease who has been unable to obtain dialysis through her fistula and now requires placement of a PermCath. PROCEDURE: The patient was taken to the angiography suite and placed supine on the angiography room table and then prepped and draped in a standard surgical fashion. Ultrasound was used to evaluate the right internal jugular vein which was easily compressible, widely patent and free of thrombus. Ultrasound was used to guide cannulation of the right internal jugular vein with a hard copy image preserved of real-time concurrent imaging of the entry of the micropuncture needle into the right internal jugular vein. The right internal jugular vein was then sequentially dilated under fluoroscopic guidance. The catheter was tunneled through the anterior chest wall and then advanced through the introducer sheath and positioned with the tip in the superior vena cava/right atrial junction. Both ports were aspirated and noted to aspirate easily and then flushed with heparinized saline. Dressings were applied. Patient tolerated the procedure well. All instrument, sponge and needle counts were correct at the end of the case. There were no complications. Dr. Mcintosh was present for and directed the entire case. Patient was transferred to the holding area and subsequently discharged in stable condition. The PermCath is stable for use for hemodialysis access. RADIOLOGICAL SUPERVISION INTERPRETATION: The catheter was positioned with the tip in the superior vena cava/right atrial junction with no pneumo- or hemothorax noted. Ultrasound was used to guide cannulation with real-time concurrent imaging of the entry of the needle into the right internal jugular vein. The right internal jugular vein was easily compressible, widely patent and free of thrombus. A hard copy image was preserved. [facility]
== END | disposition home or self-care (01) ==
LOC: M IRPRO 14:23
PROVIDERS: ATTEND Surgery Vascular Surgery
DX: N18.6 End stage renal disease (principal); T82.9XXD Unspecified complication of cardiac and vascular prosthetic device, implant and graft, subsequent encounter
CPT/HCPCS: 36558; 76937; 77001; C1750; C1769; C1894

== ENCOUNTER 2017-07-21 03:10 | Inpatient (IN) | payer MEDICARE, BC ==
[~2017-07-21] VITALS: Ht 157.5 cm; Wt 84.5 kg
[2017-07-21] VITALS (12 sets, daily range): BP systolic 128–175; BP diastolic 61–85; O2SAT 100
[~2017-07-21 03:10] MED LIST changes: -HEPARIN 1,000 UNITS/ML 10ML VIAL (FOR RADIOLOGY& DIALYSIS ONLY) As Ordered ONE; -LIDOCAINE 2% MDV 20 ML VIAL As Ordered ONE
[2017-07-21] MEDS ORDERED: methylPREDNISolone INJ 125 MG/2 ML VIAL (J2930) IV ONE (03:30)
[2017-07-21 03:40] LABS: MEAN CORPUSCULAR HEMOGLOBIN 33.5 pg (27.0-33.0); MEAN CORPUSCULAR VOLUME 108.4 fl (80.0-96.0); PLATELET COUNT, AUTOMATED 377 10^3/uL (150-450); RED CELL DISTRIBUTION WIDTH 16.4 % (11.5-14.5)
[2017-07-21] MEDS: IPRATROPIUM 0.5MG/ALBUTEROL 2.5MG INH SOL UD 3ML (DUONEB)(J7620) NEB PRN ×2 (03:46→03:59)
[2017-07-21 03:48] LABS: ABG BASE EXCESS -6.5 (-2.0-2.0); ABG HCO3 21.1 MEQ/L (22.0-26.0); ABG PARTIAL PRESSURE CO2 51.4 mmHg (35.0-45.0); ABG PARTIAL PRESSURE O2 348.6 mmHg (75.0-100.0); ABG STANDARD HCO3 19.2 MEQ/L (22.0-26.0); ABG TOTAL CO2 22.7 MEQ/L (23.0-31.0)
[2017-07-21 03:51] LABS: ABG pH (ARTERIAL) 7.231 UNITS (7.350-7.450)
[2017-07-21 03:51] LABS: WHITE BLOOD COUNT 18.5 10^3/uL (4.0-10.0)
[2017-07-21 03:52] LABS: ADD MANUAL DIFFER YES; DIFF SLIDE NUMBER 88; POSITIVE DIFF POS FLAG
[2017-07-21 04:01] LABS: ANION GAP 8 MEQ/L (8-16); BLOOD UREA NITROGEN 37 MG/DL (7-18); CALCIUM LEVEL 8.5 MG/DL (8.8-10.2); CARBON DIOXIDE LEVEL 23 MEQ/L (21-32); CHLORIDE LEVEL 105 MEQ/L (98-107); CREATININE FOR GFR 3.56 MG/DL (0.55-1.02); GLOMERULAR FILTRATION RATE 13.4 (>39); GLUCOSE, FASTING 207 MG/DL (83-110); SODIUM LEVEL 136 MEQ/L (136-145)
[2017-07-21 04:08] LABS: ALBUMIN 3.5 GM/DL (3.2-5.2); ALBUMIN/GLOBULIN RATIO 0.9 (1.00-1.93); BILIRUBIN,DIRECT 0.2 MG/DL (0.0-0.2); BILIRUBIN,TOTAL 0.5 MG/DL (0.2-1.0); TOTAL PROTEIN 7.4 GM/DL (6.4-8.2)
[2017-07-21 04:16] LABS: POTASSIUM SERUM 5.7 MEQ/L (3.5-5.1)
[2017-07-21 04:23] LABS: BANDS 1 % (< 11); EOSINOPHILS 4 % (0-5)
[2017-07-21] MEDS ORDERED: CEFTRIAXONE SOD 1 GM in APPROPRIATE DILUENT 1 EA IV ONE (04:45)
[2017-07-21] MEDS ORDERED: METAL LOCK LOOP XX ONE (04:58)
--- NOTE | 2017-07-21 05:41 | HPEPDOC ---
General Date of Admission Jul 21, 2017 Primary Care Physician: Zenaida Hernandez MD Chief Complaint The patient is a 71-year-old female admitted with a reason for visit of Diff Breathing. Source: Patient, Family Exam Limitations: No limitations Timing/Duration: Day(s) Associated Symptoms: Cough, Shortness of breath History of Present Illness Ms. El is a 71 -year-old female with past medical history of end-stage renal disease on dialysis Tuesday, , Tuesday, coronary artery disease status post stent placement, history of AL, depression, COPD with active tobacco abuse , diabetes, hypertension, obstructive sleep apnea noncompliant with CPAP use, history of right DVT and subclavian, chronic low back pain who presents to the emergency department after she missed hemodialysis yesterday to 2 being short of breath, felt weak and not feeling well. The patient is accompanied by her at bedside. Her explained that she did not feel well yesterday and was laying down on her couch and was to sick to go to hemodialysis. The patient states that she has been short of breath for the past day or so with a 2 day history of subjective fevers and nausea. Patient denies muscle aches or chills nor vomiting, denies diarrhea or blood in stool, denies pain with urination or blood in urine. She states that her daughter and her daughter's boyfriend have had an upper respiratory infection and she thinks that they may have gotten her sick. She does not wear her CPAP machine at night because it "" does not work "". She states that she takes all of her medications regularly and that recently she was started 1 week ago on a new medication by her machine packaging technician who is also her primary care doctor, the patient cannot remember what medication it is or what it was for. She is currently a bit short of breath on BiPAP in the emergency department but can carry out a conversation without difficulty. Home Medications Scheduled (Anoro Ellipta 62.5-25 Mcg/INH) 1 Aer Aer, 1 PUFF INH DAILY, (Reported) Amlodipine Besylate (Amlodipine Besylate) 10 Mg Tab, 10 MG PO DAILY, (Reported) Apixaban Base (Eliquis) 5 Mg Tab, 5 MG PO BID, (Reported) Atenolol (Atenolol) 50 Mg Tab, 50 MG PO DAILY, (Reported) Atorvastatin Calcium (Atorvastatin Calcium) 20 Mg Tab, 20 MG PO QHS, (Reported) Calcitriol (Calcitriol) 0.25 Mcg Cap, 0.25 MCG PO DAILY, (Reported) Cholecalciferol (Vitamin D3) 1,000 Unit Tab, 1,000 UNITS PO DAILY, (Reported) Citalopram Hydrobromide (Citalopram Hydrobromide) 20 Mg Tab, 20 MG PO DAILY, ( Reported) Clonidine Hydrochloride (Clonidine HCl) 0.1 Mg Tab, 0.1 MG PO BID, (Reported) Isosorbide Mononitrate (Isosorbide Mononitrate ER) 30 Mg Tab, 30 MG PO BID, ( Reported) Losartan Potassium (Losartan Potassium) 100 Mg Tab, 100 MG PO QHS, (Reported) Sevelamer Carbonate (Renvela) 800 Mg Tab, 800 MG PO WM, (Reported) Scheduled PRN Acetaminophen (Acetaminophen Extra Stren) 500 Mg Tab, 500 MG PO Q6H PRN for PAIN / FEVER, (Reported) Allergies Coded Allergies: No Known Allergies (Verified , 07/21/17) Past Medical History Medical History As per HPI Surgical History Appendectomy Coronary stents AV fistula in left arm Permacath Cholecystectomy Family History Significant Family History: No pertinent family hx Social History * Smoker: current smoker (one pack per day since she was a teenager) Alcohol: Denies Drugs: denies Psychosocial History: No pertinent psych hx She lives at home with her , daughter and her boyfriend. Review of Symptoms Constitutional: Reports: Fever, Malaise, Weakness, Fatigue, Denies: Chills, Night Sweats, Weight Loss Eyes: Denies: Pain, Vision change ENT: Denies: Head Aches Skin: Denies: Rash, Lesions Pulmonary: Reports: Dyspnea, Cough Cardiovascular: Reports: Palpitations, Edema (bilateral lower extremities), Denies: Chest Pain, Orthopnea, Lt Headedness Gastrointestinal: Reports: Nausea, Denies: Vomiting, Abdominal Pain, Diarrhea, Constipation, Melena, Hematochezia Genitourinary: Denies: Dysuria Musculoskeletal: Denies: Neck Pain Neurological: Reports: Weakness Psych: Reports: Anxiety Physical Examination General Exam: Positive: Alert, Cooperative, Moderate Distress (she is short of breath on BiPAP but can carry on conversation w/o difficulty) Eye Exam: Positive: Conjunctiva & lids normal, EOMI ENT Exam: Positive: Mucous membr. moist/pink, Pharynx Normal Neck Exam: Positive: Supple Chest Exam: Positive: Rhonchi (generalized), Wheezing, Diminished, Other ( crackles bibasilar, no neck stridor present, no conversational dyspnea) Heart Exam: Positive: Rate Normal, Normal S1, Normal S2, Negative: Murmurs, Rubs Telemetry: Positive: No significant arrhythmia Abdomen Exam: Positive: Normal bowel sounds, Soft, Negative: Tenderness, Hepatospenomegaly Extremity Exam: Positive: Edema (+2 bilateral lower extremities), Negative: Clubbing, Cyanosis Neuro Exam: Positive: Normal Speech Psych Exam: Positive: Mental status NL, Oriented x 3 Vital Signs Vital Signs Date Time Temp Pulse Resp B/P (MAP) Pulse Ox O2 Delivery O2 Flow Rate FiO2 07/21/17 04:41 98/58 (71) 07/21/17 04:40 92 98 07/21/17 04:07 BIPAP/CPAP 30 07/21/17 03:58 98.3 36 Laboratory Data Labs 24H Laboratory Tests 2 07/21/17 03:27: Aspartate Amino Transf (AST/SGOT) 45H, Alanine Aminotransferase (ALT/SGPT) 15, Alkaline Phosphatase 118H, Total Bilirubin 0.5, Direct Bilirubin 0.2, Total Protein 7.4, Albumin 3.5, Albumin/Globulin Ratio 0.90L, Thyroid Stimulating Hormone (TSH) 9.540H 07/21/17 03:28: White Blood Count 18.5H, Red Blood Count 3.10L, Hemoglobin 10.4L, Hematocrit 33.6L, Mean Corpuscular Volume 108.4H, Mean Corpuscular Hemoglobin 33.5H, Mean Corpuscular Hemoglobin Concent 31.0L, Red Cell Distribution Width 16.4H, Platelet Count 377, Lymphocytes # (Auto) , Nucleated Red Blood Cells % (auto) 0.1H, Neutrophils 50, Band Neutrophils 1, Lymphocytes (Manual) 34, Monocytes ( Manual) 10H, Eosinophils (Manual) 4, Atypical Lymphocytes 1, Platelet Estimate NORMAL, Macrocytosis 2+, Anion Gap 8, Glomerular Filtration Rate 13.4L, Lactic Acid Level 2.8*H, Blood Urea Nitrogen 37H, Creatinine 3.56H, Sodium Level 136, Potassium Level 5.7H, Chloride Level 105, Carbon Dioxide Level 23, Calcium Level 8.5L, Total Creatine Kinase 38, Creatine Kinase MB 1.0, Creatine Kinase MB Relative Index 2.63, Troponin I < 0.02 07/21/17 03:41: Blood Gas Bicarbonate Standard 19.2L, Arterial Blood pH 7.231*L, Arterial Blood Partial Pressure CO2 51.4H, Arterial Blood Partial Pressure O2 348.6H, Arterial Blood Total CO2 22.7L, Arterial Blood HCO3 21.1L, Arterial Blood Base Excess - 6.5L, Arterial Blood Oxygen Saturation 99.9H CBC/BMP Laboratory Tests 07/21/17 03:28 Red Blood Count 3.10 L, Mean Corpuscular Volume 108.4 H, Mean Corpuscular Hemoglobin 33.5 H, Mean Corpuscular Hemoglobin Concent 31.0 L, Red Cell Distribution Width 16.4 H, Lymphocytes # (Auto) , Calcium Level 8.5 L, Total Creatine Kinase 38 Microbiology Microbiology 07/21/17 Blood Culture, Received Pending Assessment/Plan This is 71-year-old female who presents after missing hemodialysis one day ago due to feeling ill with shortness of breath, weakness, nausea and fatigue. 1. Acute hypoxic hypercapnic respiratory failure -Likely secondary to COPD exasperation, right lower lobe pneumonia and missed dialysis fluid overload -Patient will continue on BiPAP in ICU -PCO2 of 51 on ABG in ED -Continue with oxygen respiratory orders 2. Hyperkalemia -Secondary to missed dialysis -Potassium currently 5.7 -Dr. Hernandez consulted appreciate his help -Will receive dialysis today 3. Mixed respiratory and metabolic acidosis -Patient will continue on BiPAP and receive treatment for pneumonia -Secondary to elevated lactic acid from tachypnea 4. Leukocytosis -WBC 18.5 -Secondary to pneumonia, right lower lobe -Continue to trend -Patient given 1 dose of Rocephin, she was hospitalized recently-cover for HCAP -Will continue Zosyn and Vanco -Blood cultures pending -History of MSSA bacteremia 5. COPD exacerbation -We'll hold steroids for now as cause of respiratory distress most likely from fluid overload -Scheduled DuoNeb's 6. Hyperthyroidism -TSH 9.54 -Will order free T4 7. Diabetes -Patient does not appear to be on long-acting insulin at home -Not on any oral hypoglycemic agents at home -Sliding scale 8. Depression -Continue with citalopram 9. Hypertension -Patient demonstrated hypotension in ED -We'll hold amlodipine and losartan for now 10. Plan / VTE VTE Prophylaxis Ordered?: Yes GME ATTESTATION GME ATTESTATION My faculty preceptor for this patient encounter was physically present during the encounter and was fully available. All aspects of the patient interview, examination, medical decision making process, and medical care plan development were reviewed and approved by the faculty preceptor. The faculty preceptor is aware and concurs with the plan as stated in the body of this note and will attest to such by his/her cosignature. FARSHAD LUNA DO Jul 21, 2017 05:41
[2017-07-21] MEDS ORDERED: ACETAMINOPHEN TAB 650MG DOSE (2X325MG) PO PRN (05:45)
[2017-07-21] MEDS ORDERED: ONDANSETRON 4MG/2ML VIAL (J2405) IV PRN (05:45)
[2017-07-21] MEDS ORDERED: HEPARIN SOD (PORCINE) 5000 UNITS/ML VIAL SC SCH (06:00)
[2017-07-21] MEDS ORDERED: VANCOMYCIN HCL 500 MG in D5W MINI-BAG PLUS 100 ML IV ONE (06:15)
[2017-07-21 06:20] LABS: ABG BASE EXCESS -6.6 (-2.0-2.0); ABG HCO3 16.8 MEQ/L (22.0-26.0); ABG PARTIAL PRESSURE O2 108.1 mmHg (75.0-100.0); ABG TOTAL CO2 17.7 MEQ/L (23.0-31.0); ABG pH (ARTERIAL) 7.413 UNITS (7.350-7.450)
[2017-07-21] MEDS ORDERED: GLUCOSE 4 GM CHEW TABLET PO PRN (06:30)
[2017-07-21] MEDS ORDERED: GLUCAGON FOR INJ 1 MG VIAL (J1610) SC PRN (06:30)
[2017-07-21] MEDS ORDERED: DEXTROSE 50% 50 ML SYRINGE IV PRN (06:30)
[2017-07-21] MEDS: IPRATROPIUM 0.5MG/ALBUTEROL 2.5MG INH SOL UD 3ML (DUONEB)(J7620) NEB SCH ×5 (07:11→22:03)
[2017-07-21] MEDS: HumaLOG INSULIN (NovoLOG) PER UNIT SC SCH ×4 (07:30→20:45)
[2017-07-21 07:59] LABS: FREE T4 0.95 NG/DL (0.76-1.46)
[2017-07-21] MEDS: (RENVELA) SEVELAMER **CARBONate** 800 MG TAB PO SCH ×3 (08:00→17:09)
[2017-07-21] MEDS: ATENOLOL 50 MG TAB PO SCH (08:15)
[2017-07-21] MEDS: CitaloPRAM (CeleXA) 20 MG TAB PO SCH (08:16)
[2017-07-21] MEDS: APIXABAN 5 MG TAB (ELIQUIS) PO SCH ×2 (08:16→20:45)
[2017-07-21] MEDS: cloNIDine 0.1 MG TAB PO SCH ×2 (08:16→20:46)
[2017-07-21] MEDS: ISOSORBIDE MON. (IMDUR) 30 MG XR TAB PO SCH ×2 (08:16→20:45)
[2017-07-21] MEDS: VITAMIN D 1,000 INTERNATIONAL UNITS TABLET PO SCH (08:16)
[2017-07-21] MEDS: CALCITRIOL 0.25 MCG CAP (S0169) PO SCH (11:06)
--- NOTE | 2017-07-21 11:17 | PHACANCOPD ---
PHARMACY VANCOMYCIN DOSING Pt Demographics Demographics Patient Age:71 , Weight:94.900 , Gender: female Adjusted Body Weight Date: 07/21/17, Adjusted Body Weight: [68.02] Kg Events Past 24 Hours Events Past 24 Hours: NO: Dialysis, Diuretic Therapy, Change in CrCl, Fever, Elevation in WBC, Pending Diagnostics, Pending Procedures, Other Vancomycin Vancomycin indication: 15-20 Vancomycin Target Ranges: 15-20 mcg/ml Vancomycin Load Y/N: No Load Dose Date Time Vancomycin Load Dose: Date: Time: Vancomycin Dose Date: 07/21/17. Current Vancomycin Dose: [1g iv after HD] Intermittent Dosing?: Yes Labs Labs Item Value Date Time White Blood Count 18.5 10^3/uL H 07/21/17 0328 Creatinine 3.56 MG/DL H 07/21/17 0328 Micro Microbiology 07/21/17 Blood Culture, Received Pending 07/21/17 Blood Culture, Received Pending Creatinine Clearance Date:07/21/17. Creatinine Clearance: [12.2]. Assessment and Plan Maintaining Current Dose?: Yes Reason for dose change: No Dose Change Pharmacist Note Pharmacist Note Date: 07/21/17. Pharmacist note: Pt is a 71 year old female being treated for HCAP goal trough 15-20mcg/ml. The patient is scheduled for 1g of vancomycin after HD today. The patient will be dosed intermittently pending verification of HD schedule. We will continue to monitor and adjust dose as needed. [facility] Jul 21, 2017 11:17
[2017-07-21] MEDS ORDERED: PREVNAR 13 VACCINE SYRINGE (CPT CODE:90670) IM SCH (12:45)
--- NOTE | 2017-07-21 12:55 | IPN ---
DATE: 07/21/2017 Mrs. El is seen during hemodialysis in the intensive care unit. She remains on BiPAP and dialysis is being tolerated well. Her blood pressure is remaining stable and we are planning to remove about 3.5 liters of fluid. 1.0 mEq potassium bath is used due to hyperkalemia. On physical examination, temperature is 97.9 degrees Fahrenheit, heart rate 70 per minute and respiratory rate 18 per minute. Blood pressure 133/61 mmHg and oxygen saturation 98%. Her lungs have bilateral wheezing and rhonchi. Heart sounds are distant, regular. Neck is supple and jugular venous distention (JVD) is difficult to be assessed. Head is atraumatic. Extremities have no cyanosis or clubbing. Lower extremity edema is 2+. Abdomen soft and benign. The patient is tolerating her dialysis treatment well. We will plan to dialyze her for 3-1/2 hours. We are removing about 3.5 liters of fluid. Next dialysis will be scheduled for Tuesday.
[2017-07-21] MEDS: PIPERACILLIN/TAZOBACTAM SOD 2.25 GM in APPROPRIATE DILUENT 1 EA IV SCH ×2 (13:00→20:44)
[2017-07-21] MEDS ORDERED: HEPARIN 1,000 UNITS/ML 10ML VIAL (FOR RADIOLOGY& DIALYSIS ONLY) IV ONE (13:15)
--- NOTE | 2017-07-21 13:43 | CR ---
DATE OF CONSULTATION: 07/21/[address] JUANA CLARK REASON FOR CONSULTATION: Respiratory failure, hyperkalemia and end-stage renal disease. HISTORY OF PRESENT ILLNESS: Mrs. El is a 71-year-old female with known history of diabetes, hypertension, coronary artery disease, chronic obstructive pulmonary disease (COPD) with active smoking, depression, obstructive sleep apnea, and a prior history of deep vein thrombosis (DVT). She has been noncompliant with dialysis treatments and frequently misses her dialysis with various excuses. She missed her dialysis once again on Tuesday and presented to the emergency room early this morning with shortness of breath. She was found to be in pulmonary edema with impending respiratory failure and was put on BiPap. She was also noticed to have hyperkalemia. A nephrology consultation was requested for urgent hemodialysis and the patient is admitted to intensive care unit. PAST MEDICAL HISTORY: (Significant for) 1. Diabetes. 2. Hypertension. 3. Hyperlipidemia. 4. Coronary artery disease. 5. History of COPD with active smoking. 6. Obstructive sleep apnea and noncompliance with C-PAP. 7. History of end-stage renal disease and noncompliant with dialysis treatments. 8. History of anemia. 9. History of DVT. 10. History of chronic back pain. PAST SURGICAL HISTORY: (Significant for) 1. Appendectomy. 2. Coronary angioplasty with stents. 3. AV fistula creation in the left arm. 4. Perma-Cath placement. 5. Cholecystectomy. HOME MEDICATIONS: (Her medications include) - Anoro Ellipta 62.5/25 mcg daily - amlodipine 10 mg daily - Eliquis 5 mg twice a day - atenolol 50 mg daily - atorvastatin 20 mg daily - calcitriol 0.25 mcg daily - vitamin D 1000 units daily - citalopram 20 mg daily - clonidine 0.1 mg twice a day - Imdur 30 mg twice a day - losartan 100 mg daily - Renvela 800 mg three times a day with meals ALLERGIES: Patient has no known drug allergies. PERSONAL AND SOCIAL HISTORY: The patient is and lives with her family. She is an active smoker and smokes about one pack of cigarettes daily. She denies any alcohol or drug use. FAMILY HISTORY: There is no family history for end-stage renal disease. REVIEW OF SYSTEMS: At the time of my visit in the intensive care unit, the patient is on BiPap. She is unable to talk. Her was present and I did talk to him. The patient had no fever or chills. She missed her dialysis treatment on Tuesday due to not feeling well. The patient's reports that he did try to convince her to come for dialysis; however, she declined. There is no history of vomiting or diarrhea reported and no history of hemoptysis or pleuritic type of chest pain. She does have chronic leg edema. She is an active smoker and has not made any efforts to quit. Otherwise, her review of systems is unremarkable. The patient herself is not able to provide much information due to being on BiPap. She is quite short of breath at present. PHYSICAL EXAMINATION: Temperature 97.9 degrees Fahrenheit, heart rate 80 per minute and respiratory rate 18 per minute. Blood pressure 160/83 mmHg and oxygen saturation 98% on BiPap with 30% oxygen. Head is atraumatic. Pupils are equal and reactive to light and sclera is anicteric. Neck veins are difficult to be assessed due to being on BiPap. Heart sounds are regular and lungs with bilateral wheezing and crackles. Abdomen is soft and nontender. Bowel sounds are present. Extremities have no cyanosis or clubbing. Musculoskeletal system shows significant lower extremity edema bilaterally. Left arm AV graft is being used for dialysis. Neurologically, she is moving all her extremities. She is awake and responds by nodding her head. LABORATORY DATA: WBC count is 18.5, hemoglobin 10.4 and hematocrit 33.6. Platelets 377. Sodium 136 and potassium 5.7. BUN 37 and creatinine 3.56. Glucose 207 and lactic acid level 2.8. Calcium level 8.5. Troponin less than 0.02. A pro BNP level is 8255. Chest x-ray done in the emergency room showed cardiomegaly and pulmonary edema. PROBLEMS: 1. Respiratory failure related to a combination of COPD and volume overload. The patient is noncompliant with dietary restrictions and dialysis treatment. She missed her dialysis on Tuesday. We have already arranged emergency hemodialysis and the patient is already being dialyzed. Our plan is to remove about 3.5 liters of fluid as tolerated. We hope that at the end of dialysis she will be able to come off the BiPap machine. 2. COPD. The patient is an active smoker. She does not make any efforts to quit smoking. I suggest to continue with nebulizer therapy and monitor her closely after removing the BiPap. 3. End-stage renal disease. The patient is regularly dialyzed on Tuesday, and Tuesday schedule. She missed her dialysis on Tuesday and he is being dialyzed now. Will complete her full dialysis treatment today. Next dialysis will be scheduled for Tuesday. 4. Hyperkalemia related to missed dialysis treatment and noncompliance with dietary restrictions. We will dialyze her with 1.0 mEq potassium bath. This will correct her hyperkalemia. 5. Diabetes. The patient should be monitored closely and continue with insulin per coverage. 6. Hypertension. Blood pressure control is likely to improve after correction of volume status and improvement in her respiratory status. Her chronic home antihypertensive medications should be resumed. 7. Noncompliance. Patient has a long history of noncompliance with dietary restrictions and dialysis treatments. I have discussed with the patient and her once again on the bedside and risks of respiratory failure and cardiac arrest including are explained. I have emphasized the importance of compliance with treatments to prevent recurrent hospitalizations. Thank you for involving me in the care of Mrs. El. I will follow her along with you.
--- NOTE | 2017-07-21 14:07 | REP ---
Portable chest: Two views. History: Dyspnea and cough. Comparison study: June 01, 2017. Findings: A tunnel catheter is noted on the right with its tip in the expected location of the superior vena cava. Vascular and interstitial markings are diffusely prominent. Mild interstitial edema pattern. Heart is mildly enlarged as before. The aorta is tortuous. There is increased density in the right base medially. Question infiltrate. Impression: Mild diffuse interstitial edema pattern. Question infiltrate right base. Signed by Chris Rubio MD 07/21/2017 04:08 P
[2017-07-21] MEDS ORDERED: CHECK TO SEE IF PATIENT IS RECEIVING DIALYSIS TODAY AND REFER TO THE VANCOMYCIN ORDER XX SCH (16:00)
[2017-07-21] MEDS: ATORVASTATIN 20 MG TAB PO SCH (20:45)
[2017-07-22] VITALS (10 sets, daily range): BP systolic 126–175; BP diastolic 61–101; O2SAT 95
[2017-07-22] MEDS ORDERED: VANCOMYCIN INTERMITTENT/PULSE DOSING BY CLINICAL PHARMACIST PER DOSING PROTOCOL XX SCH (00:01)
[2017-07-22] MEDS: IPRATROPIUM 0.5MG/ALBUTEROL 2.5MG INH SOL UD 3ML (DUONEB)(J7620) NEB SCH ×5 (03:05→20:04)
[2017-07-22 04:59] LABS: MEAN CORPUSCULAR HEMOGLOBIN 33.2 pg (27.0-33.0); MEAN CORPUSCULAR HGB CONC 32.2 g/dl (32.0-36.5); MEAN CORPUSCULAR VOLUME 103.2 fl (80.0-96.0); PLATELET COUNT, AUTOMATED 197 10^3/uL (150-450); RED CELL DISTRIBUTION WIDTH 16.7 % (11.5-14.5); WHITE BLOOD COUNT 15.7 10^3/uL (4.0-10.0)
[2017-07-22 05:20] LABS: CALCIUM LEVEL 8.6 MG/DL (8.8-10.2); CREATININE FOR GFR 3.58 MG/DL (0.55-1.02); GLOMERULAR FILTRATION RATE 13.3 (>39)
[2017-07-22 05:28] LABS: POTASSIUM SERUM 5.5 MEQ/L (3.5-5.1)
[2017-07-22 05:42] LABS: ERYTHROCYTE SEDIMENTATION RATE 60 mm/hr (0-30)
[2017-07-22] MEDS: PIPERACILLIN/TAZOBACTAM SOD 2.25 GM in APPROPRIATE DILUENT 1 EA IV SCH ×2 (05:46→12:38)
[2017-07-22] MEDS: (RENVELA) SEVELAMER **CARBONate** 800 MG TAB PO SCH ×3 (08:23→16:51)
[2017-07-22] MEDS: CALCITRIOL 0.25 MCG CAP (S0169) PO SCH (08:23)
[2017-07-22] MEDS: HumaLOG INSULIN (NovoLOG) PER UNIT SC SCH ×4 (08:23→20:55)
[2017-07-22] MEDS: APIXABAN 5 MG TAB (ELIQUIS) PO SCH ×2 (08:24→20:54)
[2017-07-22] MEDS: VITAMIN D 1,000 INTERNATIONAL UNITS TABLET PO SCH (08:24)
[2017-07-22] MEDS: ISOSORBIDE MON. (IMDUR) 30 MG XR TAB PO SCH ×2 (08:24→20:54)
[2017-07-22] MEDS: CitaloPRAM (CeleXA) 20 MG TAB PO SCH (08:24)
[2017-07-22] MEDS: cloNIDine 0.1 MG TAB PO SCH ×2 (08:24→20:54)
[2017-07-22] MEDS: ATENOLOL 50 MG TAB PO SCH (08:25)
[2017-07-22] MEDS ORDERED: VANCOMYCIN HCL 1,000 MG, VIAL MATE ADAPTER 1 EACH in D5W 250 ML IV SCH (09:00)
--- NOTE | 2017-07-22 09:08 | ECGEPIP ---
Stationary ECG Study [facility] - ED Test Date: 2017-07-21 Pat Name: GONZALES ANTONY Department: Room: [place] [address] Gender: F Organizational Development Manager: corinna : 1945 Requested By: Cale Smith Order Number: [id number] Reading MD: Cale Barrett Measurements Intervals [place] Rate: 133 P: WI: 0 QRS: -30 QRSD: 98 T: 76 QT: 288 QTc: 429 Interpretive Statements SINUS TACHYCARDIA BORDERLINE LEFT AXIS DEVIATION POOR R WAVE PROGRESSION NONSPECIFIC T-WAVE ABNORMALITY RATE CHANGE COMPARED TO 05/27/17 Electronically Signed On 07-22-2017 9:08:37 EST by Cale Barrett
[2017-07-22] MEDS: ALBUTEROL SULFATE 2.5 MG/0.5 ML INH NEB SOLN INH PRN ×2 (09:35→23:38)
--- NOTE | 2017-07-22 10:03 | IPN ---
DATE: 07/22/2017 SUBJECTIVE: The patient tells me that she is feeling a lot better today. She tells me that she is breathing more easily. She says her cough is improved. She denies fevers or chills. OBJECTIVE: VITAL SIGNS: Temperature 99, maximum temperature (t-max) 99.7, pulse 80, respiratory rate 19, blood pressure 165/71, oxygen saturation 94% on 1 liter nasal cannula. GENERAL: She is an elderly, super morbidly obese, female lying flat in bed. She does not appear to be in any acute distress. She speaks in complete sentences without any accessory muscle use. HEENT: Cranial nerves II-XII are grossly intact. She has moist mucous membranes. Difficult to assess for elevation in central venous pressure. CARDIOVASCULAR EXAM: S1, S2 appears to be regular. RESPIRATORY EXAM: Clear anteriorly. She does not cooperate with the posterior exam. ABDOMINAL EXAM: Grossly obese. Bowel sounds present. The abdomen is soft. EXTREMITIES: There is no clubbing, cyanosis. There is persistent edema bilaterally. LABORATORY STUDIES: WBC 13.7, down from 80.5, hemoglobin 8.3, down from 10.4, platelet count 197. Chemistry panel: Sodium 135, potassium 5.5, down from 5.7, chloride 100, bicarbonate 25, BUN 29, creatinine 3.5. No new microbiology. Blood culture negative after 24 hours. Imaging showed a chest x-ray yesterday that revealed mild diffuse interstitial edema pattern and questionable infiltrate at the right base. ASSESSMENT AND PLAN: This is a 71-year-old female with acute respiratory failure secondary to fluid overload. 1. Acute respiratory failure secondary to decompensated congestive heart failure (CHF). The patient did undergo urgent hemodialysis yesterday morning and following significant fluid removal of 3.5 liters she was able to be weaned from her bilevel positive airway pressure (BIPAP). She is currently requiring 1 liter of oxygen, but we will titrate for saturations 88 to 92 and wean as tolerated. She did have low grade temperature, leukocytosis, which has persisted and questionable infiltrate on her chest x-ray. Given her hospitalizations and antibiotic use, there is concern for multidrug resistance organism. She has been empirically on vancomycin and Zosyn at this time. We will continue the antibiotics, followup cultures and narrow spectrum as appropriate. She does appear to be significantly better than she was yesterday. 2. Chronic obstructive pulmonary disease (COPD). The patient is an active smoker and has made no effort to quit. Cessation counseling was advised today. We will continue with nebulizers. She is on 1 liter of oxygen. She does require some intermittent oxygen at home at her baseline. The patient is on DuoNeb and Proventil. 3. Hyperkalemia. This remains elevated today. I will discuss with Dr. Hernandez further whether or not she requires further hemodialysis today. 4. End stage renal disease on hemodialysis on Tuesday, , Tuesday. She missed her dialysis session on Tuesday and required a session yesterday. The importance of compliance and following medical therapies and making dialysis sessions was discussed extensively this morning. Significant time was spent at bedside educating the patient. The patient is on Renvela, calcitriol. 5. Diabetes. She is on sliding scale insulin. Her fingersticks are controlled. 6. Hypertension. Controlled on atenolol, clonidine, Imdur. 7. Vitamin D deficiency. She is on supplementation. 8. Dyslipidemia. She is on atorvastatin. 9. History of deep vein thrombosis (DVT). The patient is on Eliquis. 10. Coronary artery disease. The patient is on Eliquis, statin and a beta ely. 11. Obstructive sleep apnea. Noncompliant with continuous positive airway pressure (CPAP). 12. DVT prophylaxis. The patient is on Eliquis. DISPOSITION: She is medically stable to be transferred to be the progressive care unit (PCU).
--- NOTE | 2017-07-22 12:16 | PHACANCOPD ---
PHARMACY VANCOMYCIN DOSING Pt Demographics Demographics Patient Age:71 , Weight:94.500 , Gender: female Adjusted Body Weight Date: 07/21/17, Adjusted Body Weight: [68.02] Kg Vancomycin Vancomycin indication: 15-20 Vancomycin Target Ranges: 15-20 mcg/ml Vancomycin Load Y/N: No Load Dose Date Time Vancomycin Load Dose: Date: Time: Vancomycin Dose Date: 07/21/17. Current Vancomycin Dose: [1g iv after HD] Intermittent Dosing?: Yes Labs Micro Microbiology 07/21/17 Blood Culture - Preliminary, Resulted No growth after 24 hours . All specim... 07/21/17 Blood Culture - Preliminary, Resulted No growth after 24 hours . All specim... Creatinine Clearance Date:07/21/17. Creatinine Clearance: [12.2]. Assessment and Plan Maintaining Current Dose?: Yes Reason for dose change: No Dose Change Pharmacist Note Pharmacist Note 07/22/17: Day #2 empiric IV vancomycin therapy. I have scheduled a random level to be drawn tomorrow with AM labs, since the patient is scheduled for their next dialysis session tomorrow (regular dialysis days are , , Sat.) We will continue to monitor and make adjustments if needed. Date: 07/21/17. Pharmacist note: Pt is a 71 year old female being treated for HCAP goal trough 15-20mcg/ml. The patient is scheduled for 1g of vancomycin after HD today. The patient will be dosed intermittently pending verification of HD schedule. We will continue to monitor and adjust dose as needed. [facility] Jul 22, 2017 12:16
[2017-07-22] MEDS ORDERED: LIDOCAINE 1% SDV 5 ML VIAL SQ ONE (13:00)
[2017-07-22] MEDS ORDERED: HEPARIN 1,000 UNITS/ML 10ML VIAL (FOR RADIOLOGY& DIALYSIS ONLY) IV ONE (13:00)
--- NOTE | 2017-07-22 17:48 | IPN ---
DATE: 07/22/2017 Mrs. El is seen this morning on her bedside in intensive care unit. 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 She underwent urgent hemodialysis, and 3.5 liters fluid was removed. She was on Bilevel positive airway pressure (BiPAP) and has now been off BiPAP. She is dialysis was completed. She still short of breath, particularly on any exertion. She also has known history of chronic obstructive pulmonary disease (COPD) with active smoking and obstructive sleep apnea, for which she has been noncompliant with continuous positive airway pressure (CPAP). She has been noncompliant with dialysis treatment too and missed her dialysis on Tuesday, due to which she developed volume overload and respiratory failure. She denies any nausea or vomiting at present and has no fever or chills. PHYSICAL EXAMINATION: Temperature 98.6 degrees Fahrenheit, heart rate 80 per minute, respiratory rate 28 per minute, blood pressure 175/89 mm of mercury, and oxygen saturation 93% on 2 liters oxygen. Head is atraumatic. Pupils are equal and reactive to light, and sclerae are anicteric. Neck is supple and jugular venous distention (JVD) is moderately elevated. There is no thyroid enlargement. Lungs have bilateral expiratory wheezing and rhonchi. Heart sounds are distant and irregular. Abdomen: Obese, soft, and nontender. Extremities without cyanosis or clubbing. Lower extremity edema is 2+. Skin has no rash or ulcers. Neurologically, she is awake, alert, and oriented times three. Today's labs show WBC count 15.7, hemoglobin 8.3, and hematocrit 25.8. Platelets 197. Sodium 135, potassium 5.5, BUN 29, and creatinine 3.58. Calcium level is 8.6 and a pro BNP level today 32,395, which is four times higher than yesterday prior to dialysis. PROBLEMS: 1. Respiratory failure related to COPD and hypervolemia. The patient underwent urgent hemodialysis yesterday with improved volume status. Her pro BNP level went up despite improved volume status. We will dialyze her again this afternoon and remove another 3-4 liters of fluid as tolerated. 2. Hyperkalemia. Her potassium level improved from yesterday; however, she still has mild hyperkalemia. We will use a 2.0 mEq potassium bath and try to correct her electrolytes. 3. End-stage renal disease. She is regularly dialyzed on Tuesday, , and Tuesday schedule. She missed her dialysis on Tuesday and dialyzed her yesterday. We will go ahead and dialyze her again today due to dyspnea, hypervolemia, and hyperkalemia. She will then go back to her regular schedule of Tuesday, , and Tuesday. 4. Hypertension. Blood pressure control is suboptimal due to hypervolemia. We will continue with her chronic antihypertensive medications and make adjustments after dialysis if her blood pressure does not improve with further fluid removal. 5. Anemia. Her anemia has worsened since yesterday. We will recheck her complete blood count (CBC) tomorrow. There is no active bleeding. At this point there is no indication for transfusion. 6. Noncompliance with dialysis treatment. I have discussed with the patient and her at length once again about need for compliance with dietary restrictions and dialysis treatments. They both now affirm their commitment that they will be very compliant in the future. The patient clearly understands the risks to her life, including respiratory arrest, cardiac arrest, and . DISPOSITION: From a renal standpoint, the patient can be transferred out of intensive care unit to regular medical floor.
[2017-07-22] MEDS ORDERED: LevoFLOXacin 250 MG TABLET PO ONE (18:00)
[2017-07-22] MEDS: ATORVASTATIN 20 MG TAB PO SCH (20:55)
[2017-07-23 04:00] VITALS: BP 165/71
[2017-07-23] MEDS: IPRATROPIUM 0.5MG/ALBUTEROL 2.5MG INH SOL UD 3ML (DUONEB)(J7620) NEB SCH ×6 (04:12→19:43)
[2017-07-23 05:29] LABS: MEAN CORPUSCULAR HGB CONC 32.1 g/dl (32.0-36.5); MEAN CORPUSCULAR VOLUME 102.7 fl (80.0-96.0); PLATELET COUNT, AUTOMATED 190 10^3/uL (150-450); RED CELL DISTRIBUTION WIDTH 16.9 % (11.5-14.5); WHITE BLOOD COUNT 9.6 10^3/uL (4.0-10.0)
[2017-07-23 05:50] LABS: CALCIUM LEVEL 8.8 MG/DL (8.8-10.2); CREATININE FOR GFR 2.81 MG/DL (0.55-1.02); GLOMERULAR FILTRATION RATE 17.6 (>39); POTASSIUM SERUM 4.1 MEQ/L (3.5-5.1)
[2017-07-23 06:06] LABS: ERYTHROCYTE SEDIMENTATION RATE 52 mm/hr (0-30)
[2017-07-23] MEDS: APIXABAN 5 MG TAB (ELIQUIS) PO SCH ×2 (06:07→21:08)
[2017-07-23] MEDS: VITAMIN D 1,000 INTERNATIONAL UNITS TABLET PO SCH (06:07)
[2017-07-23] MEDS: (RENVELA) SEVELAMER **CARBONate** 800 MG TAB PO SCH ×3 (06:07→18:20)
[2017-07-23] MEDS: CitaloPRAM (CeleXA) 20 MG TAB PO SCH (06:07)
[2017-07-23] MEDS: CALCITRIOL 0.25 MCG CAP (S0169) PO SCH (06:07)
[2017-07-23] MEDS: HumaLOG INSULIN (NovoLOG) PER UNIT SC SCH ×4 (07:30→21:00)
[2017-07-23] MEDS: cloNIDine 0.1 MG TAB PO SCH ×2 (08:03→21:09)
[2017-07-23] MEDS: ATENOLOL 50 MG TAB PO SCH (08:03)
[2017-07-23] MEDS: ISOSORBIDE MON. (IMDUR) 30 MG XR TAB PO SCH ×2 (08:03→21:09)
[2017-07-23 08:05] VITALS: BP 156/70
[2017-07-23] MEDS ORDERED: PREVNAR 13 VACCINE SYRINGE (CPT CODE:90670) IM ONE (09:00)
[2017-07-23 10:45] VITALS: BP 158/78
--- NOTE | 2017-07-23 13:02 | IPN ---
DATE OF EXAMINATION: 07/23/2017 SUBJECTIVE: The patient tells me that she is feeling significantly better today. She tells me that she would like to go home soon. She denies shortness of breath, fevers, chills, nausea, vomiting or diarrhea. OBJECTIVE: VITAL SIGNS: Temperature 98.6, pulse 73, respiratory rate 18, blood pressure 156/70, oxygen saturation 93% on 2 liters. In general, she is a morbidly obese, elderly female who sits up in the bed to greet me as I enter the room. She is sitting on the edge of the bed and is in no acute distress. She is accompanied by her . HEENT: Cranial nerves II-XII are grossly intact. Difficult to assess for elevation in central venous pressure (CVP) secondary to body habitus. CARDIOVASCULAR EXAM: S1, S2 regular. RESPIRATORY EXAM: Is actually quite clear. There is some basilar rales. ABDOMINAL EXAM: Grossly obese. EXTREMITIES: There is no clubbing, cyanosis. Trace edema bilaterally. LABORATORY STUDIES: WBC 9.6, improved from 18.5, hemoglobin 8.6, stable, hematocrit 26.8, platelet count 190. ESR trends down 52 from 60. Chemistry panel: Sodium 136, potassium 4.1, chloride 99, bicarbonate 22, BUN 15, creatinine 2.8. BNP is trending down, 25,000 down from 32,000. Blood cultures are negative. No new imaging. ASSESSMENT AND PLAN: This is a 71-year-old female with acute on chronic respiratory failure secondary to decompensated congestive heart failure. PROBLEMS: 1. Acute on chronic respiratory failure secondary to acute on chronic congestive heart failure. The patient did undergo urgent hemodialysis yesterday morning, will undergo further hemodialysis this morning. She has been weaned from bilevel positive airway pressure (BiPAP) and is doing well on her baseline oxygen requirement. She is up and ambulating and requesting to go home. She does appear significantly improved. Today is another regularly scheduled hemodialysis day. I suspect she may be able to be discharged home as early as tomorrow once her volume status is further optimized. 2. Chronic obstructive pulmonary disease (COPD). She is an active smoker who has never made any intention to quit before. Cessation and counseling has been advised today. She is continued on DuoNebs and Proventil. 3. End-stage renal disease on hemodialysis. She did miss hemodialysis session. Nephrology's help greatly appreciated with optimization of her volume status. She is continued on calcitriol, vitamin D, Renvela. 4. Hyperkalemia, resolved. 5. Dyslipidemia. She is on atorvastatin. 6. Diabetes. She is on sliding scale insulin. 7. Hypertension. Controlled with atenolol, clonidine and Imdur. 8. Vitamin D deficiency. She is on supplementation. 9. History of deep vein thrombosis (DVT). She patient is on Eliquis. 10. Coronary artery disease. She is on Eliquis, statin and a beta-ely. 11. Obstructive sleep apnea. She is noncompliant with continuous positive airway pressure (CPAP). 12. Medical noncompliance. Strict adherence stressed by both myself and Dr. Hernandez on numerous occasions. 13. Deep venous thrombosis prophylaxis. She is on Eliquis. DISPOSITION: She is medically stable for transfer to medical-surgical floor. Suspect she may be able to be discharged within the next 2448 hours. MTDD
[2017-07-23 14:00] VITALS: BP 165/70
[2017-07-23] MEDS ORDERED: HEPARIN 1,000 UNITS/ML 10ML VIAL (FOR RADIOLOGY& DIALYSIS ONLY) XX ONE (17:00)
[2017-07-23] MEDS ORDERED: HEPARIN 1,000 UNITS/ML 10ML VIAL (FOR RADIOLOGY& DIALYSIS ONLY) IV ONE (17:00)
[2017-07-23] MEDS: ATORVASTATIN 20 MG TAB PO SCH (21:09)
[2017-07-23 22:00] VITALS: BP_SYST 131; BP_SYST 150; BP_DIAS 72; BP_DIAS 87
[2017-07-24] MEDS: IPRATROPIUM 0.5MG/ALBUTEROL 2.5MG INH SOL UD 3ML (DUONEB)(J7620) NEB SCH ×4 (01:00→11:01)
[2017-07-24 06:00] VITALS: BP 130/70
[2017-07-24] MEDS ORDERED: LevoFLOXacin 250 MG TABLET PO SCH (06:00)
[2017-07-24 06:10] LABS: MEAN CORPUSCULAR HEMOGLOBIN 34.4 pg (27.0-33.0); MEAN CORPUSCULAR HGB CONC 32.4 g/dl (32.0-36.5); MEAN CORPUSCULAR VOLUME 106.1 fl (80.0-96.0); PLATELET COUNT, AUTOMATED 190 10^3/uL (150-450); RED CELL DISTRIBUTION WIDTH 16.7 % (11.5-14.5); WHITE BLOOD COUNT 7.8 10^3/uL (4.0-10.0)
[2017-07-24 06:34] LABS: ERYTHROCYTE SEDIMENTATION RATE 50 mm/hr (0-30)
[2017-07-24 06:43] LABS: CREATININE FOR GFR 2.72 MG/DL (0.55-1.02); GLOMERULAR FILTRATION RATE 18.3 (>39); POTASSIUM SERUM 4.7 MEQ/L (3.5-5.1)
[2017-07-24] MEDS: HumaLOG INSULIN (NovoLOG) PER UNIT SC SCH (07:17)
[2017-07-24] MEDS ORDERED: LEVA1TAB PO (08:06)
[2017-07-24] MEDS: CALCITRIOL 0.25 MCG CAP (S0169) PO SCH (08:16)
[2017-07-24] MEDS: APIXABAN 5 MG TAB (ELIQUIS) PO SCH (08:16)
[2017-07-24] MEDS: (RENVELA) SEVELAMER **CARBONate** 800 MG TAB PO SCH ×2 (08:16→12:05)
[2017-07-24] MEDS: CitaloPRAM (CeleXA) 20 MG TAB PO SCH (08:16)
[2017-07-24] MEDS: VITAMIN D 1,000 INTERNATIONAL UNITS TABLET PO SCH (08:16)
[2017-07-24 08:20] VITALS: BP 172/82
[2017-07-24] MEDS: cloNIDine 0.1 MG TAB PO SCH (08:20)
[2017-07-24] MEDS: ATENOLOL 50 MG TAB PO SCH (08:20)
[2017-07-24] MEDS: ISOSORBIDE MON. (IMDUR) 30 MG XR TAB PO SCH (08:20)
[2017-07-24 11:38] VITALS: BP 142/60
[2017-07-24] MEDS ORDERED: RENV2TAB PO (11:49)
--- NOTE | 2017-07-24 15:18 | IPN ---
DATE: 07/23/2017 SUBJECTIVE: The patient is seen this morning at the bedside. She reports she feels well. She denies any complaint at present. She would like to go home soon. She denies shortness of breath or dyspnea on exertion. VITAL SIGNS: Temperature 96.0, pulse 69, respiratory rate 18, blood pressure 168/78, saturating 96% on 2 liters nasal cannula. Intake and output: Dialysis today removed 3 kg ultrafiltration. Weight on the bed scale today is 88.5 kg. PHYSICAL EXAMINATION: The patient is seen in bed. Her is present at the bedside. She is comfortable. In no acute distress. HEENT: Extraocular muscles are intact. The oral mucosa is moist. It is difficult to assess the neck veins due to body habitus. There is a right subclavian PermaCath present. CARDIAC: S1, S2. Regular rate. 2+ radial pulse. LUNGS: Symmetric air entry bilaterally. She is seen on nasal cannula. No accessory muscle use. ABDOMEN: Obese, soft, nontender. EXTREMITIES: There is a left upper extremity fistula with thrill and bruit. There is 1+ edema in the lower extremities. SKIN: No rash or ulcers. NEUROLOGICAL: She is awake, alert and at her baseline mentation. Oriented times three. PSYCHIATRIC: Appropriate mood and affect. LABS: White count 9.6, hemoglobin 8.6, platelet 190. Sodium 136, potassium 4.1, bicarbonate 29, glucose 9.7. Calcium 8.8. BNP 28476. MICROBIOLOGY: Blood cultures with no growth for 48 hours. INPATIENT MEDICATIONS: Reviewed by myself. Noted that she is on renally dosed Levaquin. The remainder of medications are unchanged from prior. PROBLEMS: 1. Respiratory failure related to chronic obstructive pulmonary disease (COPD) and hypervolemia secondary to noncompliance with dialysis. The patient has now undergone three serial hemodialysis treatments on , Tuesday and Tuesday with at least 3 kg ultrafiltration removed on each treatment. Her weight has down trended over the past 3 days and she has been net negative fluid balance with concomitant improvement in her respiratory status. Her BNP has down trended though remains elevated. She is advised at length in regards to compliance with dialysis regimen and compliant with fluid restriction. In terms of COPD, she remains an active smoker and she continues on Proventil and DuoNebs. She continues on antibiotics with renally dosed Levaquin. At present the patient remains supplemental oxygen dependent via nasal cannula. At home is she intermittently on oxygen. 2. Hypertension. Blood pressure acceptable at this time on her current regimen of atenolol, clonidine, and Imdur. 3. End-stage renal disease, on hemodialysis. The patient's next dialysis session will be on Wednesday, July 26, 2017 per her maintenance schedule. If she requires additional ultrafiltration that can be arranged at her outpatient dialysis unit. 4. Anemia. The patient's hemoglobin is suboptimal 8.6. She will continue on anemia protocol with Aranesp for goal hemoglobin of 10 to 11.
--- NOTE | 2017-07-25 02:58 | IPN ---
DATE OF SERVICE: 07/24/2017 SUBJECTIVE: The patient is seen this morning at the bedside. She is discharge pending. She denies any complaints. Denies any shortness of breath. We had a enio discussion regarding fluid restriction and need for strict compliance with dialysis. The patient affirms her commitment to attending her hemodialysis treatments as scheduled. VITAL SIGNS: Temperature 98.4, pulse 68, respiratory rate 19-20, blood pressure 133/70, saturating 99% on 2 liters nasal cannula. Intake and output: Dialysis yesterday removed 3000 mL. Weight on the bed scale today is 84.5 kg, decreased from prior. PHYSICAL EXAMINATION: General: The patient is seen sitting up at the side of the bed, comfortable in no acute distress. Her family is present. Extraocular muscles are intact. The ears, nose and throat are unremarkable. She has a right internal jugular (IJ) PermaCath. Cardiovascular: S1, S2. Regular rate and rhythm. 2+ radial pulse. Lungs show symmetric air entry, decreased at base, otherwise clear. The abdomen is soft, obese, nontender. Extremities: She has a left upper extremity fistula with thrill and bruit. Lower extremities have trace edema present. Neurologic: No focal deficit. Psychiatric: Appropriate mood and affect. LABORATORIES: White count 7.8, hemoglobin 10.1, platelets 190. Sodium 140, potassium 4.7, bicarbonate 29, calcium 9.0. BNP 21,000. INPATIENT MEDICATIONS: Reviewed by myself and unchanged from prior. PROBLEMS: 1. End-stage renal disease on hemodialysis with history of noncompliance: The patient received three serial hemodialysis treatments on , Tuesday, and Tuesday with significant improvement in her volume status and in her shortness of breath. Her next dialysis treatment will be per her maintenance schedule 07/26. She is again urged to comply with hemodialysis treatments and with oral fluid restriction. 2. Acute on chronic respiratory failure secondary to congestive heart failure (CHF) with volume regulation via hemodialysis: The patient's overall volume status has improved the past several days. She continues to be on nasal cannula at present and reports that she has been prescribed oxygen at home, which she uses intermittently. 3. Hypertension: Blood pressure is well controlled on the current regimen. 4. Anemia: Hemoglobin is at goal, 10.1 today. 5. Disposition: The patient is discharge pending today and cleared for discharge from a renal point of view. She states she will work to comply with hemodialysis sessions and with volume restriction as an outpatient.
--- NOTE | 2017-07-25 08:37 | DSES ---
DATE OF ADMISSION: 07/21/2017 DATE OF DISCHARGE: 07/24/2017 DISCHARGE DIAGNOSIS: Acute on chronic respiratory failure. SECONDARY DIAGNOSES: 1. Decompensated congestive heart failure (CHF). 2. End stage renal disease on hemodialysis. 3. Chronic obstructive pulmonary disease (COPD). 4. Hyperkalemia. 5. Dyslipidemia. 6. Diabetes. 7. Hypertension. 8. Vitamin D deficiency. 9. History of deep vein thrombosis (DVT). 10. Coronary artery disease. 11. Obstructive sleep apnea. 12. Noncompliance. 13. Tobacco abuse. 14. Pneumonia. HOSPITAL COURSE: The patient is a 71-year-old female who had been feeling unwell and had skipped hemodialysis, actively smoking, who presented to the hospital in [place] pulmonary [place] after skipping hemodialysis sessions. She was placed on BiPAP for acute on chronic respiratory failure and admitted to the medical intensive care unit (ICU). She did undergo urgent hemodialysis with significant fluid removal. After several sessions, she was able to wean back to her baseline respiratory status. She did improve significantly with dialysis. There was initially some concern for pneumonia at the time of her admission. She was initially on broad-spectrum antibiotics, but as the culture remained negative this was narrowed to levofloxacin. She did improve quite quickly after hemodialysis, my suspicion for pneumonia is much lower. The patient has a history of noncompliance and the adverse effects and the potential threat to her life were stressed on numerous occasions by multiple providers during her stay. SUBJECTIVE: This morning, the patient tells me that she wants to go home. She misses her cats. She tells me that she will not smoke and she will present for hemodialysis. OBJECTIVE: VITAL SIGNS: Temperature 98.4, pulse 83, respiratory rate 20, blood pressure 142/60, oxygen saturation 96% on room air. On ambulation on room air she desaturates to 86%. On 2 liters, it comes up to 94% on ambulation. GENERAL: She is a morbidly obese, elderly, female, sits up to greet me as I enter the room. She does not appear to be in acute distress. HEENT: Cranial nerves II-XII are grossly intact. She has moist mucous membranes. No elevation in central venous pressure. CARDIOVASCULAR EXAM: S1, S2 regular. RESPIRATORY EXAM: Quite clear. ABDOMINAL EXAM: Obese. EXTREMITIES: No clubbing, cyanosis or edema. LABORATORY STUDIES: WBC 7.8, hemoglobin 10.1, platelet count 190. Chemistry panel: Sodium 140, potassium 4.7, chloride 105, bicarbonate 29, BUN 17, [place] [address] today. Blood cultures are negative. Chest x-ray at the time of admission was concerning for diffuse interstitial edema pattern and questionable right base infiltrate. ASSESSMENT AND PLAN: This is a 71-year-old female with acute on chronic respiratory failure secondary to decompensated congestive heart failure (CHF). 1. Acute on chronic respiratory failure secondary to decompensated congestive heart failure. The patient did undergo urgent hemodialysis yesterday and the day before. She has been weaned from noninvasive mechanical ventilation. She is at her baseline respiratory status. She is ambulating independently and requesting to go home. She is at her functional baseline and independent of her activities of daily living and medically stable for discharge home. She is at her baseline respiratory status. 2. End stage renal disease. On hemodialysis. Nephrology's help has been greatly appreciated. She continues on Renvela, calcitriol. 3. Chronic obstructive pulmonary disease (COPD). She is an active smoker. Cessation counseling was provided. She has been advised against using home oxygen and smoking extensively and the risks of explosion and are made aware to both her and her . She is continued on nebulizer treatments and inhalers. 4. Hyperkalemia, resolved. 5. Dyslipidemia. She is on atorvastatin. 6. Diabetes. She is on sliding scale. 7. Hypertension. Controlled with atenolol, clonidine and Imdur. 8. Vitamin D deficiency. She is on supplementation. 9. Coronary artery disease. She is on Eliquis, statin and a beta ely. 10. History of deep vein thrombosis (DVT). She is on Eliquis. 11. Obstructive sleep apnea. She is noncompliant with CPAP. 12. Noncompliance. Strict adherence with dialysis, medications, tobacco cessation, and use of home CPAP were stressed numerous times. Extensive amount of time was spent at bedside educating the patient and answering all questions. DISPOSITION: THe patient is being discharged home. She is independent. She is to followup with her supervisor [employer] for regular scheduled hemodialysis. Followup with her primary care provider in 7 days. Activity is as prior to admission. Diet is renal diet. She is to return to the emergency room if her symptoms worsen. MEDICATIONS: At the time of discharge: - levofloxacin 250 mg every 48 hours, three more doses - extra strength Tylenol 500 mg every 6 hours as needed for pain or fever - amlodipine 10 mg daily - Anoro Ellipta 62.5/25 one puff inhaled daily - Eliquis 5 mg twice a day - atenolol 50 mg daily - atorvastatin 20 mg at night - calcitriol 0.25 mcg daily - vitamin D3 1000 units daily - citalopram 20 mg daily - clonidine 0.1 mg twice a day - isosorbide mononitrate extended release 30 mg twice a day - losartan 100 mg at night - Renvela 800 mg with meals - home oxygen was arranged prior to disposition Greater than 1 hour was spent organizing disposition.
== END 2017-07-24 12:15 | disposition home or self-care (01) | DRG 291 ==
LOC: M ED 03:10 → M ED INP 05:38 → M ICU 06:47 → M PCU 07-22 21:50 → M MSPAV 07-23 10:39
PROVIDERS: ADMIT Internal Medicine; ATTEND Internal Medicine
PROC: 5A1D70Z Performance of Urinary Filtration, Intermittent, Less than 6 Hours Per Day (ICD-10-PCS; principal; 2017-07-21)
DX: I13.2 Hypertensive heart and chronic kidney disease with heart failure and with stage 5 chronic kidney disease, or end stage renal disease (principal); N18.6 End stage renal disease; J18.9 Pneumonia, unspecified organism; J96.01 Acute respiratory failure with hypoxia; J96.02 Acute respiratory failure with hypercapnia; E87.4 Mixed disorder of acid-base balance; J44.1 Chronic obstructive pulmonary disease with (acute) exacerbation; E87.5 Hyperkalemia; E05.90 Thyrotoxicosis, unspecified without thyrotoxic crisis or storm; E11.22 Type 2 diabetes mellitus with diabetic chronic kidney disease; F32.9 Major depressive disorder, single episode, unspecified; E66.01 Morbid (severe) obesity due to excess calories; I25.10 Atherosclerotic heart disease of native coronary artery without angina pectoris; E78.5 Hyperlipidemia, unspecified; E55.9 Vitamin D deficiency, unspecified; I50.9 Heart failure, unspecified; I25.2 Old myocardial infarction; F17.210 Nicotine dependence, cigarettes, uncomplicated; M54.5 Low back pain; Z99.2 Dependence on renal dialysis; Z86.718 Personal history of other venous thrombosis and embolism; Z91.15 Patient's noncompliance with renal dialysis; Z95.5 Presence of coronary angioplasty implant and graft; Z91.19 Patient's noncompliance with other medical treatment and regimen; Z91.11 Patient's noncompliance with dietary regimen; Z79.899 Other long term (current) drug therapy; Z79.01 Long term (current) use of anticoagulants; Z68.38 Body mass index [BMI] 38.0-38.9, adult

== ENCOUNTER → 2017-09-29 | Outpatient (CLI) | payer MEDICARE, BC ==
[~2017-09-29] MED LIST changes: -ACET-683 PO; -AMLO10TA2 PO; -ANOR1AER INH; -ATEN50TA2 PO; -ATOR1TAB21 PO; -CALC1CAP31 PO; -CITA20TA4 PO; -CLON-412 PO; -CLONI1TA PO; -DOXA1TAB42 PO; -ELIQ5TAB PO; -FURO40TA2 PO; -ISOS30TA4 PO; +LIDOCAINE 2% MDV 20 ML VIAL As Ordered; -LOSA100T36 PO; -LOSA50TA20 PO; -METO5TA PO; -RENV2TAB PO; -SPIR25TA2 PO; -VITA-122 PO
== END | disposition home or self-care (01) ==
LOC: M IRPRO 12:29
DX: Z45.2 Encounter for adjustment and management of vascular access device (principal); N18.6 End stage renal disease; Z99.2 Dependence on renal dialysis
CPT/HCPCS: 36589